=== PATIENT | female | born 1955 | race Caucasian/White ===

== ENCOUNTER 2019-01-25 06:36 | Inpatient (IN) | payer OTHER, SELFPAY ==
[2019-01-25 07:00] LABS: Actual Bicarbonate (HCO3a) 37.3 mEq/L (22-28); Analyzer IN Cardio ER; Base Excess (BEa) 6.5 mEq/L (-2.0 to +3.0); Calcium, Ionized 1.16 mmol/L (1.12-1.30); Carboxyhemoglobin (COHb) 7.9 gm% (0.0-3.0); Hemoglobin (Hb) 15.4 g/dL (12.0-16.0); O2 Tension (PaO2) 73.5 mmHg (> 80.0); Potassium - ABG Lab 3.89 mmol/L (3.70-5.30); pH, Arterial 7.26 (7.35-7.45)
--- NOTE | 2019-01-25 07:05 | RAD ---
RADIOGRAPH CHEST 1 VIEW: DATE: 01/25/2019 TIME: 6:30 AM HISTORY: 63-year-old female with dyspnea COMPARISON: 01/15/2012 FINDINGS: Cardiac size is larger on the current study compared to the previous. New finding of mild interstitia l densities diffusely bilaterally, probably representing mild pulmonary interstitial edema. No focal airspace opacity. Lateral costophrenic angles are sharp. Hyperlucency of bilateral upper lobes are again noted, consistent with COPD. No pneumothorax. IMPRESSION: 1. Evidence for minimal or mild congestive heart failure: Mild cardiomegaly and mild probable pulmona ry interstitial edema. 2. Emphysema.
[2019-01-25 07:16] LABS: CO2 Tension 85.2 mmHg (35.0-45.0); Puncture Site RRA
[2019-01-25 07:18] LABS: #Lymphocytes 0.9 thou/uL (1.20-3.40); #Monocytes 0.7 thou/uL (0.11-0.59); #Neutrophils 4.6 thou/uL (1.40-6.50); %Basophils 0.7 % (0.0-1.0); %Eosinophils 0.6 % (0.0-10.0); %Lymphocytes 14.8 % (21.0-51.0); %Neutrophils 72.8 % (42.0-75.0); Hemoglobin 14.8 g/dL (12.0-16.0); Mean Corpuscular HGB CONC 29.7 g/dL (32.0-36.0); Mean Corpuscular Hemoglobin 27.4 pg (27.0-31.0); Mean Corpuscular Volume 92.2 fL (78.0-98.0); Mean Platelet Volume 9.9 fL (7.4-10.4); Platelet Count 206 thou/uL (130-400); RBC Distribution Width 20.9 % (11.5-14.5); White Blood Cell (WBC) Count 6.3 thou/uL (4.8-10.8)
[2019-01-25 07:23] LABS: ALT (SGPT) 11 U/L (8-55); AST (SGOT) 14 U/L (5-34); Alkaline Phosphatase 82 U/L (40-110); Anion Gap 12 mmol/L (10-20); BUN (Urea Nitrogen) 12 mg/dL (9.8-20.1); Bilirubin, Total 0.6 mg/dL (0.2-1.2); Calc. Creatinine Clearance 0 mL/min (70-130); Calcium 8.8 mg/dL (7.8-10.44); Carbon Dioxide 34 mmol/L (23-31); Chloride 96 mmol/L (98-107); Estimated GFR-MDRD Greater than 90; Globulin 2.6 g/dL (2.4-3.5); Glucose 129 mg/dL (80-115); Potassium 4.1 mmol/L (3.5-5.1); Protein, Total 6.6 g/dL (6.0-8.3); Sodium 138 mmol/L (136-145)
[2019-01-25] MEDS ORDERED: Furosemide 40 MG/4 ML VIAL ONE (07:37)
[2019-01-25] MEDS ORDERED: methylPREDNISolone Sod Succ/PF 125 MG/2 ML VIAL ONE (07:37)
[2019-01-25] MEDS ORDERED: Magnesium 2 GM/50 ML BAG (IN WATER) ONE (07:37)
[2019-01-25 07:46] LABS: CKMB 4.4 ng/mL (0-6.6)
[2019-01-25 07:59] LABS: Band 1 % (5-11); Lymphocytes 10 % (21-51); MDiff Complete? YES; Monocytes 1 % (0-10); Neutrophil 76 % (42-75); Platelet Morphology Comment Appears Adequate; Reactive Lymphocytes 12 % (0-10)
[2019-01-25 10:25] LABS: Troponin I 0.236 ng/mL (< 0.028)
[2019-01-25] MEDS ORDERED: Aspirin Chewable 81 MG TAB ONE (12:43)
[2019-01-25 13:35] LABS: Troponin I 0.192 ng/mL (< 0.028)
[2019-01-25 14:11] VITALS: BMI 25.9
[2019-01-25] MEDS ORDERED: Guaifenesin DM 100-10/5 ML UDCUP PO PRN (14:47)
[2019-01-25] MEDS ORDERED: Albuterol Sulfate 2.5 mg/3 ml Neb NEB PRN (14:47)
[2019-01-25] MEDS ORDERED: Senokot S 8.6-50 MG TAB PO PRN (14:47)
[2019-01-25] MEDS ORDERED: Acetaminophen 325 MG TAB PO PRN (14:47)
[2019-01-25] MEDS ORDERED: Acetaminophen 650 MG Suppository PR PRN (14:47)
[2019-01-25] MEDS ORDERED: Ondansetron ODT 4 MG TAB PO PRN (14:47)
[2019-01-25] MEDS ORDERED: Ondansetron PF 4 MG/2 ML Vial IVP PRN (14:47)
[2019-01-25] MEDS ORDERED: Azithromycin 500 MG in Sodium Chloride 0.9% 250 ML 250 ML IVPB SCH (15:00)
--- NOTE | 2019-01-25 15:37 | HP ---
PRIMARY CARE PHYSICIAN: Dr. Villalba at [facility] in [place]. CHIEF COMPLAINT: Shortness of breath. HISTORY OF PRESENT ILLNESS: This is a 63-year-old white female with a known history of COPD, was continuing to smoke until about 3 to 4 weeks ago and who did report some recent marijuana smoking to the emergency room. She reports increasing shortness of breath for the last 2 months, is not on oxygen at home. She does use inhalers and a nebulizer at home. The patient eventually became so short of breath and she got dizzy, fell against a wall when she got to use her bathroom last night, so she came into the emergency room today. The patient was found to be in respiratory distress in the emergency room. She was given Solu-Medrol, magnesium, DuoNeb, and put on BiPAP with marked improvement in her symptoms. She had a chest x-ray done that looks like it may have a little bit of interstitial edema, so she was also given a dose of furosemide 80 mg and she was given a dose of aspirin. The patient is now in the IMCU. She is feeling much better. She is breathing easily on nasal cannula oxygen. REVIEW OF SYSTEMS: CONSTITUTIONAL: No fevers. She has had some chills. EYES: No double vision or blurred vision. ENT: No congestion, drainage, or sore throat. CARDIOVASCULAR: No chest pain. No palpitations or racing heart. PULMONARY: She has had coughing, not productive of sputum; chest tightness; and trouble breathing. No audible wheezing. GASTROINTESTINAL: No abdominal pain. No nausea or vomiting. No diarrhea or constipation. GENITOURINARY: No dysuria or hematuria. MUSCULOSKELETAL: No muscle aches or joint pains. SKIN: No rashes or other lesions noted. NEUROLOGIC: No numbness, tingling, or focal weakness. PAST MEDICAL HISTORY: 1. Hypertension. 2. COPD. PAST SURGICAL HISTORY: None. PAST PSYCHIATRIC HISTORY: None. SOCIAL HISTORY: The patient is a previous smoker, quit 3 to 4 weeks ago. She denied drug use to me, but reported marijuana use as recently as yesterday to the emergency room. No regular alcohol use. FAMILY HISTORY: No significant family history of medical problems. ALLERGIES: PENICILLIN. CURRENT MEDICATIONS: 1. Albuterol sulfate inhaler. 2. Unknown nebulizer. PHYSICAL EXAMINATION: VITAL SIGNS: Blood pressure 120/71, pulse 87, respirations 23, O2 saturation initially 49% on room air, came up to 81% on 2 L and now is running in the low 90s on 4 L nasal cannula, temperature 98.0. GENERAL: This is a well-developed, well-nourished white female, with minimal respiratory distress. HEENT: Pupils are equal, round, and reactive to light. Oropharynx clear without lesions, erythema, or exudate. She does have moist mucous membranes. NECK: Supple. No lymphadenopathy. No thyroid nodules or enlargement. No JVD. HEART: Regular rate and rhythm. No murmurs, rubs, or gallops. LUNGS: The patient has some very mild bibasilar crackles. No wheezes or other significant breath sounds. She has decent air movement bilaterally. ABDOMEN: Soft, nontender to palpation. Normoactive bowel sounds. No hepatosplenomegaly or other masses. EXTREMITIES: No clubbing, cyanosis, or edema. SKIN: No rashes or lesions noted. NEUROLOGIC: Intact strength and sensation in all extremities. No facial droop. PSYCHIATRIC: Alert and oriented x3. Normal mood and affect. LABORATORY DATA: CBC grossly within normal limits. D-dimer was done and is high at 0.52. ABGs in the emergency room showed a pH of 7.26, pCO2 of 85, and pO2 of 73. This was prior to putting on the BiPAP. Complete metabolic panel is notable for chloride of 96, bicarb of 34, and glucose of 129. The rest was normal. Troponin is indeterminate at 0.270, repeat was 0.236 and then 0.192. Brain natriuretic peptide was mildly elevated at 110. Lactic acid was negative at 1. IMAGING: I did review the chest x-ray done in the emergency room along with the radiologist's report. It does show mild cardiomegaly and some minimal interstitial changes, which might be mild congestive failure, but no obvious infiltrate. ASSESSMENT: 1. Chronic obstructive pulmonary disease exacerbation. We will continue nebs and steroids and we will start on azithromycin. 2. Acute hypoxic and hypercapnic respiratory failure, markedly improved after BiPAP, now breathing comfortably on nasal cannula oxygen. We will monitor closely in the IMCU and give BiPAP as needed and possibly move her out tomorrow if she is continuing to be stable. 3. Possible congestive heart failure with elevated BNP and indeterminate troponins along with the chest x-ray findings. We will continue Lasix 40 mg IV daily, and we will get an echocardiogram and consult Cardiology if the echocardiogram is abnormal. 4. Hypertension. We will monitor closely and give medication as necessary. 5. Deep venous thrombosis prophylaxis, put the patient on Lovenox subcu. 6. Gastrointestinal prophylaxis, put the patient on Pepcid twice a day. 7. Code status. I did discuss this with the patient. She stated that she does not ever want to have chest compressions or shocks should she code, but she does not mind being intubated temporarily due to her COPD. Should she be incapacitated, her will be her medical decision maker. His name is Helio Jimenes. Job ID: [id number]
--- NOTE | 2019-01-25 16:17 | CT ---
CT BRAIN WITH AND WITHOUT IV CONTRAST: HISTORY: Dizziness and fall FINDINGS: No evidence of infarct, hemorrhage, mass, midline shift or abnormal extra axial fluid collections is seen. The ventricular size is normal and the basilar cisterns are patent. No abnormal postcontrast enhancement is seen. The bony calvarium is intact. The visualized paranasal sinuses are well-aerated. IMPRESSION: No CT evidence of acute intracranial process or mass.
[2019-01-25] MEDS: methylPREDNISolone Sod Succ 40 MG VIAL IVP SCH ×2 (18:26→23:36)
[2019-01-25] MEDS: Mometasone/Formoterol 120 PUFF INHALER INH SCH (18:26)
[2019-01-25] MEDS: Famotidine 20 MG TAB PO SCH (20:34)
[2019-01-26 05:18] LABS: BUN (Urea Nitrogen) 14 mg/dL (9.8-20.1); Calc. Creatinine Clearance 116 mL/min (70-130); Calcium 8.5 mg/dL (7.8-10.44); Estimated GFR-MDRD Greater than 90; Glucose 145 mg/dL (80-115)
[2019-01-26 05:27] LABS: Anion Gap 14 mmol/L (10-20); Carbon Dioxide 35 mmol/L (23-31); Chloride 94 mmol/L (98-107); Potassium 4.2 mmol/L (3.5-5.1); Sodium 139 mmol/L (136-145)
[2019-01-26 05:53] LABS: #Lymphocytes 0.3 thou/uL (1.20-3.40); #Monocytes 0.1 thou/uL (0.11-0.59); %Basophils 0.4 % (0.0-1.0); %Eosinophils 0.1 % (0.0-10.0); %Lymphocytes 9.3 % (21.0-51.0); %Monocytes 3.2 % (0.0-10.0); %Neutrophils 87.1 % (42.0-75.0); Anisocytosis MODERATE=16-30 cells (100X) (0-5/hpf); Hemoglobin 14.2 g/dL (12.0-16.0); MDiff Complete? YES; Mean Corpuscular HGB CONC 29.1 g/dL (32.0-36.0); Mean Corpuscular Hemoglobin 26.4 pg (27.0-31.0); Mean Corpuscular Volume 90.9 fL (78.0-98.0); Mean Platelet Volume 10.6 fL (7.4-10.4); Platelet Count 203 thou/uL (130-400); RBC Distribution Width 21.2 % (11.5-14.5); Red Blood Cell (RBC) Count 5.38 mill/uL (4.20-5.40); White Blood Cell (WBC) Count 3.4 thou/uL (4.8-10.8)
[2019-01-26] MEDS: methylPREDNISolone Sod Succ 40 MG VIAL IVP SCH (05:55)
[2019-01-26] MEDS: Mometasone/Formoterol 120 PUFF INHALER INH SCH ×2 (07:41→19:15)
[2019-01-26] MEDS: Famotidine 20 MG TAB PO SCH ×2 (08:57→20:15)
[2019-01-26] MEDS: Enoxaparin Sodium 40 MG/0.4 ML SYRINGE SC SCH (08:58)
--- NOTE | 2019-01-26 08:59 | CON ---
DATE OF CONSULTATION: HISTORY OF PRESENT ILLNESS: A 63-year-old female, quit smoking about 3 years ago, was a pack a day smoker for many years, has diagnosis of COPD. She has several medications at home. Unfortunately, she states she has no insurance, unable to afford the medication. Now, she has been dizzy and falling down for the last 3 nights. She fell last night. Came to the hospital.resp distress she was initially placed on a BiPAP. at the bedside gives additional history that on a good day she can walk maybe half a block without getting markedly short of breath, chronic cough, chronic sputum production, chronic wheezing. PAST MEDICAL HISTORY: Pertinent otherwise for diabetes, previous substance abuse of cocaine years ago, quit 16 years ago. Tobacco, quit 3 years ago. HOME MEDICATIONS: Include albuterol inhaler, nebulizer apparently. ALLERGIES: PENICILLIN. PAST SURGICAL HISTORY: None recently. 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 REVIEW OF SYSTEMS: A 10-point negative. PHYSICAL EXAMINATION: VITAL SIGNS: Saturations 95% on 3 L, blood pressure 115/70, pulse 85, respiratory rate20. CHEST: Bilateral wheezing. CARDIAC: Normal S1, S2. No gallop. ABDOMEN: No masses. LABORATORY DATA: White count 6000, hemoglobin 14, hematocrit 49, platelet count is normal. PO2 was 73, pCO2 was 85, pH 7.26 on 4 L and a neb. Lytes were normal. Bicarb was 34, markedly elevated. Troponin was slightly elevated. BNP is normal. Chest x-ray showed no acute infiltrates. ASSESSMENT AND PLAN: 1. History of multiple falls, etiology unclear. 2. Chronic obstructive pulmonary disease exacerbation, respiratory failure. 3. Marked metabolic alkalosis, suggestive of chronic pCO2 retention. Blood gas shows significant elevation of the pCO2. 4. Previous hepatitis C, treated. 5. Previous substance abuse, quit years ago. I agree with present DuMelidab Dulera, steroids. CT head is being ordered. This is a consultation note, 70 minutes, 50% direct patient care. Job ID: [id number] MTDD
[2019-01-26] MEDS ORDERED: FLU VACC QS2019-20(6MOS UP)/PF 60 MCG/0.5 ML SYRINGE IM ONE (09:00)
[2019-01-26] MEDS ORDERED: Furosemide 40 MG/4 ML VIAL SLOW IVP SCH (09:00)
--- NOTE | 2019-01-26 10:09 | PRG ---
DATE OF SERVICE: 01/26/2019 SUBJECTIVE: This morning, the patient is better, she is less short of breath, less cough, less wheezing. She is less encephalopathic. CT of head was done, which is negative. OBJECTIVE: VITAL SIGNS: Saturations 95% on 3 L, temperature 98, pulse 90, respiratory rate 20, blood pressure 132/60. CHEST: Decreased breath sounds. Minimal wheezing. CARDIAC: Normal S1, S2. No gallops. ABDOMEN: No mass. LABORATORY DATA: White count 3000, H and H 14 and 48, and platelet count is normal. IMPRESSION: 1. Frequent fall, negative CT. 2. Previous substance abuse. 3. Chronic obstructive pulmonary disease exacerbation. PLAN: Switch her to oral prednisone, neb treatment, p.o. antibiotics, PT and supportive care, eventually placement. Job ID: [id number]
[2019-01-26] MEDS ORDERED: Aspirin 325 MG TAB PO SCH (12:15)
--- NOTE | 2019-01-26 12:21 | PDOC.HOSPP ---
- Subjective Encounter Date: 01/26/19 Encounter Time: 12:19 Subjective: 63 y/o female with COPD, HTN and DM admitted with acute onset of worsening SOB associated with wheezing, dizziness and a fall. found to have acute respiratory failure with hypoxia and hypercarbia due to COPd exacerbation and was treated with BIPAP, steroid, bronchodilators and antibiotics with improvement. Also found to have elevated troponin. feeling better. Off BIPAP. - Objective Vital Signs & Weight: Vital Signs (12 hours) Temp Pulse Pulse Pulse Resp BP BP 01/26/19 10:24 99.8 F H 01/26/19 09:12 112 H 108 H 119/77 131/74 01/26/19 09:10 108 H 119/77 131/74 01/26/19 08:00 01/26/19 07:39 98 20 01/26/19 07:00 99.0 F 01/26/19 03:47 98.1 F 01/26/19 00:21 97 26 H Pulse Ox Pulse Ox Pulse Ox 01/26/19 10:24 01/26/19 09:12 95 90 L 01/26/19 09:10 95 01/26/19 08:00 95 01/26/19 07:39 97 01/26/19 07:00 01/26/19 03:47 01/26/19 00:21 93 L Weight Weight 156 lb 3.2 oz Most Recent Monitor Data Heart Rate from ECG 95 NIBP 111/67 NIBP BP-Mean 81 Respiration from ECG 20 SpO2 92 I&O: 01/25/19 01/26/19 01/27/19 06:59 06:59 06:59 Intake Total 661 Output Total 590 Balance 71 Result Diagrams: 01/26/19 04:26 01/26/19 04:26 Hospitalist ROS - Medication Medications: Active Medications Generic Name Dose Route Start Last Admin Trade Name Freq PRN Reason Stop Dose Admin Albuterol/Ipratropium 3 ml 01/25/19 19:00 01/26/19 07:39 Duoneb NEB 3 ml [id number] CONCEPCION Administration Enoxaparin Sodium 40 mg 01/26/19 09:00 01/26/19 08:58 Lovenox SC 40 mg 0900 CONCEPCION Administration Famotidine 20 mg 01/25/19 21:00 01/26/19 08:57 Pepcid PO 20 mg BID CONCEPCION Administration Mometasone Furoate/Formoterol Fumar 2 puff 01/25/19 18:30 01/26/19 07:41 Dulera 200 Mcg/5 Mcg Inhaler INH 2 puff BID-RT CONCEPCION Administration - Exam General Appearance: awake alert Eye: anicteric sclera ENT: normocephalic atraumatic Neck: supple, symmetric, no JVD Heart: RRR Respiratory: no wheezes, no ronchi, normal chest expansion, no tachypnea Respiratory - other findings: fair air entry bilaterally with some transmitted sound Gastrointestinal: soft, non-tender, non-distended, normal bowel sounds Extremities: no cyanosis, no edema Neurological: cranial nerve grossly intact, no focal deficits Psychiatric: A&O x 3 Hosp A/P (1) Acute respiratory failure with hypoxia and hypercapnia Code(s): J96.01 - ACUTE RESPIRATORY FAILURE WITH HYPOXIA; J96.02 - ACUTE RESPIRATORY FAILURE WITH HYPERCAPNIA Status: Acute (2) COPD exacerbation Code(s): J44.1 - CHRONIC OBSTRUCTIVE PULMONARY DISEASE W (ACUTE) EXACERBATION Status: Acute (3) HTN (hypertension) Code(s): I10 - ESSENTIAL (PRIMARY) HYPERTENSION Status: Acute (4) Elevated troponin Code(s): R79.89 - OTHER SPECIFIED ABNORMAL FINDINGS OF BLOOD CHEMISTRY Status : Acute (5) Metabolic alkalosis Code(s): E87.3 - ALKALOSIS Status: Acute (6) Acute respiratory acidosis Code(s): E87.2 - ACIDOSIS Status: Acute - Plan Continue current treatments: steroid, bronchodilators, antibiotics and as needed oxygen Get Echo Start aspirin Consult cardiology. transfer to tele
[2019-01-26] MEDS: Doxycycline 100 MG CAP PO SCH (20:15)
--- NOTE | 2019-01-27 01:54 | CON ---
DATE OF CONSULTATION: HISTORY OF PRESENT ILLNESS: Gladys Jimenes is a 63-year-old white female with history of COPD and hypertension who has had increased shortness of breath over the last 2 months. She eventually became so short of breath that she was so weak and actually has had 2 falls. With these falls, she remembers falling and remembers hitting the floor. She came to the emergency room, found to be in respiratory distress. She was given Solu-Medrol, DuoNebs, placed on BiPAP. She also was given furosemide 80 mg. With oxygen, her breathing has significantly improved, although she has severe CO2 retention. She denies ever having any chest discomfort. PAST MEDICAL HISTORY: Hypertension, COPD. MEDICATIONS: 1. Amlodipine 10 daily. 2. Abilify 10 mg daily. 3. Aspirin 81 daily. 4. Advair 2 puffs b.i.d. 5. Ventolin inhaler. ALLERGIES: PENICILLIN. OPERATIONS: None. SOCIAL HISTORY: Smoked a pack a day, initially stated that she stopped smoking 3 years ago, but then admitted that she still smokes 1-2 cigarettes per day. She does not drink alcohol. REVIEW OF SYSTEMS: A 10-point review of systems is otherwise unremarkable. PHYSICAL EXAMINATION: VITAL SIGNS: Blood pressure 121/79, pulse of 99. HEENT: PERRL. NECK: Supple. CHEST: Reveals late expiratory wheezing. CARDIOVASCULAR: S1, S2 normal without any S3, S4 or murmurs. NECK: Carotid upstrokes normal without bruits. ABDOMEN: Normal bowel sounds without tenderness, organomegaly. EXTREMITIES: Revealed no clubbing, cyanosis, or edema. NEUROLOGICAL: Grossly intact. SKIN: Warm and dry. LABORATORY DATA: EKG revealed sinus tachycardia, otherwise unremarkable. Echocardiogram revealed ejection fraction of 50% to 55% with evidence for diastolic dysfunction, moderately enlarged right atrium and moderately enlarged right ventricle, severe tricuspid regurgitation, mitral annular calcification, mild mitral regurgitation, pulmonary artery pressure is 58 mmHg. Hemoglobin 14.2, hematocrit 48.9, white count 3400, platelets 203,000. D-dimer 0.52. pH 7.26, pCO2 85.2, pO2 on 40% was 73.5. Sodium 139, potassium 4.2, chloride 94, carbon dioxide 35, BUN 14, creatinine 0.57. Troponin I 0.270. BNP 110.4 kg. IMPRESSION: 1. Chronic obstructive pulmonary disease exacerbation. 2. Smoker-continues to smoke 1-2 cigarettes per day. 3. [id number] myocardial infarction, type 2. She does not have any history of chest discomfort. 4. Falls, which from her description do not sound like syncope. 5. Hypertension. PLAN: The patient currently is having her COPD treated aggressively. We will continue to follow over the next 1-2 days. Job ID: [id number]
[2019-01-27 04:36] LABS: #Lymphocytes 1.4 thou/uL (1.20-3.40); #Monocytes 0.8 thou/uL (0.11-0.59); #Neutrophils 5.7 thou/uL (1.40-6.50); %Basophils 0.4 % (0.0-1.0); %Eosinophils 0.1 % (0.0-10.0); %Lymphocytes 17.2 % (21.0-51.0); %Monocytes 10.4 % (0.0-10.0); %Neutrophils 71.8 % (42.0-75.0); Hemoglobin 14.2 g/dL (12.0-16.0); Mean Corpuscular HGB CONC 29.9 g/dL (32.0-36.0); Mean Corpuscular Hemoglobin 27.1 pg (27.0-31.0); Mean Corpuscular Volume 90.6 fL (78.0-98.0); Mean Platelet Volume 10.4 fL (7.4-10.4); Platelet Count 218 thou/uL (130-400); RBC Distribution Width 20.9 % (11.5-14.5); Red Blood Cell (RBC) Count 5.25 mill/uL (4.20-5.40); White Blood Cell (WBC) Count 7.9 thou/uL (4.8-10.8)
[2019-01-27 04:37] LABS: Hemoglobin A1c 6.2 % (4.0-6.0)
[2019-01-27 05:06] LABS: Anion Gap 13 mmol/L (10-20); BUN (Urea Nitrogen) 19 mg/dL (9.8-20.1); Calc. Creatinine Clearance 114 mL/min (70-130); Calcium 8.2 mg/dL (7.8-10.44); Carbon Dioxide 32 mmol/L (23-31); Chloride 94 mmol/L (98-107); Estimated GFR-MDRD Greater than 90; Glucose 86 mg/dL (80-115); Potassium 4.1 mmol/L (3.5-5.1); Sodium 135 mmol/L (136-145)
[2019-01-27] MEDS: Mometasone/Formoterol 120 PUFF INHALER INH SCH ×2 (07:58→19:17)
[2019-01-27] MEDS: Doxycycline 100 MG CAP PO SCH ×2 (08:47→20:33)
[2019-01-27] MEDS: predniSONE 20 MG TAB PO SCH (08:47)
[2019-01-27] MEDS: Famotidine 20 MG TAB PO SCH ×2 (08:48→20:33)
[2019-01-27] MEDS: Carvedilol 3.125 MG TAB PO SCH ×2 (08:48→16:42)
[2019-01-27] MEDS: Aspirin 325 mg Enteric Coated Tablet PO SCH (08:48)
[2019-01-27] MEDS: Enoxaparin Sodium 40 MG/0.4 ML SYRINGE SC SCH (08:49)
[2019-01-27] MEDS ORDERED: Furosemide 20 MG TAB PO SCH (09:45)
--- NOTE | 2019-01-27 09:46 | PDOC.HOSPP ---
- Subjective Encounter Date: 01/27/19 Encounter Time: 08:49 Subjective: 63 y/o female with COPD, HTN and DM admitted with acute onset of worsening SOB associated with wheezing, dizziness and a fall. Found to have acute respiratory failure with hypoxia and hypercarbia due to COPd exacerbation and was treated with BIPAP, steroid, bronchodilators and antibiotics with improvement. Also found to have elevated troponin and echo showed diastolic dysfunction. feeling better. Off BIPAP. wants to go home. still on oxygen however. - Objective Vital Signs & Weight: Vital Signs (12 hours) Temp Pulse Resp BP Pulse Ox 01/27/19 07:57 92 20 94 L 01/27/19 07:53 97.9 F 89 18 105/60 94 L 01/27/19 03:57 98.4 F 106 H 16 101/61 94 L 01/27/19 01:17 98 18 95 Weight Weight 156 lb 3.2 oz Most Recent Monitor Data Heart Rate from ECG 99 NIBP 121/79 NIBP BP-Mean 93 Respiration from ECG 23 SpO2 93 I&O: 01/26/19 01/27/19 01/28/19 06:59 06:59 06:59 Intake Total 661 240 Output Total 590 Balance 71 240 Result Diagrams: 01/27/19 03:31 01/27/19 03:31 Hospitalist ROS - Medication Medications: Active Medications Generic Name Dose Route Start Last Admin Trade Name Freq PRN Reason Stop Dose Admin Albuterol/Ipratropium 3 ml 01/25/19 19:00 01/27/19 07:57 Duoneb NEB 3 ml [id number] CONCEPCION Administration Aspirin 325 mg 01/27/19 09:00 01/27/19 08:48 Ecotrin PO 325 mg DAILY CONCEPCION Administration Carvedilol 3.125 mg 01/27/19 08:00 01/27/19 08:48 Coreg PO 3.125 mg BID-WM CONCEPCION Administration Doxycycline Hyclate 100 mg 01/26/19 21:00 01/27/19 08:47 Vibramycin PO 100 mg BID CONCEPCION Administration Enoxaparin Sodium 40 mg 01/26/19 09:00 01/27/19 08:49 Lovenox SC 40 mg 0900 CONCEPCION Administration Famotidine 20 mg 01/25/19 21:00 01/27/19 08:48 Pepcid PO 20 mg BID CONCEPCION Administration Mometasone Furoate/Formoterol Fumar 2 puff 01/25/19 18:30 01/27/19 07:58 Dulera 200 Mcg/5 Mcg Inhaler INH 2 puff BID-RT CONCEPCION Administration Ondansetron HCl 4 mg 01/25/19 14:47 01/27/19 08:48 Zofran Odt PO 4 mg Q6H PRN Administration Nausea/Vomiting Prednisone 40 mg 01/27/19 08:00 01/27/19 08:47 Prednisone PO 40 mg QAM-WM CONCEPCION Administration - Exam General Appearance: awake alert Eye: anicteric sclera ENT: normocephalic atraumatic, moist mucosa Neck: supple, symmetric, no JVD Heart: RRR Respiratory: no wheezes, no ronchi, normal chest expansion Respiratory - other findings: fair air entry with few bibasal crackles Gastrointestinal: soft, non-tender, non-distended, normal bowel sounds Extremities: no cyanosis, no edema Neurological: cranial nerve grossly intact, no focal deficits Musculoskeletal: generalized weakness Psychiatric: A&O x 3, flat affect Hosp A/P (1) Acute respiratory failure with hypoxia and hypercapnia Code(s): J96.01 - ACUTE RESPIRATORY FAILURE WITH HYPOXIA; J96.02 - ACUTE RESPIRATORY FAILURE WITH HYPERCAPNIA Status: Acute (2) COPD exacerbation Code(s): J44.1 - CHRONIC OBSTRUCTIVE PULMONARY DISEASE W (ACUTE) EXACERBATION Status: Acute (3) HTN (hypertension) Code(s): I10 - ESSENTIAL (PRIMARY) HYPERTENSION Status: Acute (4) Elevated troponin Code(s): R79.89 - OTHER SPECIFIED ABNORMAL FINDINGS OF BLOOD CHEMISTRY Status : Acute (5) Metabolic alkalosis Code(s): E87.3 - ALKALOSIS Status: Acute (6) Acute respiratory acidosis Code(s): E87.2 - ACIDOSIS Status: Acute (7) Type 2 AMI (acute myocardial infarction) Code(s): I21.A1 - MYOCARDIAL INFARCTION TYPE 2 Status: Acute (8) Acute diastolic (congestive) heart failure Code(s): I50.31 - ACUTE DIASTOLIC (CONGESTIVE) HEART FAILURE Status: Acute (9) Physical deconditioning Code(s): R53.81 - OTHER MALAISE Status: Acute (10) Recurrent falls Code(s): R29.6 - REPEATED FALLS Status: Acute - Plan old records reviewed/req, plan discussed w/ family, hernandez catheter, PT/OT, director of social media marketing, speech therapy, respiratory therapy, incentive spirometry, out of bed/ambulate, DVT proph w/heparin, DVT proph w/lovenox, DVT proph w/SCDs, GI proph, dc hernandez, dc tele, dc IVF Continue current treatments: steroid, bronchodilators, antibiotics and as needed oxygen Start coreg and low dose lasix. Continue aspirin Increase activity. PT eval and treat. Patient and spouse want to be discharged. Consult case mgt for home oxygen.
--- NOTE | 2019-01-27 19:28 | PRG ---
DATE OF SERVICE: SUBJECTIVE: Gladys Jimenes has no complaints. OBJECTIVE: VITAL SIGNS: She is afebrile. Heart rate is in the 80s, respiratory rate is 18, oximetry is 92% on 1 L, and blood pressure 104/62. LUNGS: Clear. HEART: Regular rhythm. ABDOMEN: Soft. LABORATORY DATA: White count 7.9, hemoglobin 14.2, and platelets 218. Sodium 135, potassium 4.1, chloride 94, bicarb 32, BUN 19, and creatinine 0.58. IMPRESSION: Chronic obstructive pulmonary disease exacerbation, clinically stable. Echocardiogram was done showing diastolic dysfunction, but a normal ejection fraction. Overall, she appears to be stable. She does not have oxygen at home. She may not need it. I would suggest checking a room-air sat sitting up in a chair tomorrow. If it is 90 or higher, she can go home without oxygen and follow up closely with our Pulmonary group. Job ID: [id number]
[2019-01-28 04:56] LABS: Albumin 3.7 g/dL (3.4-4.8); Anion Gap 13 mmol/L (10-20); BUN (Urea Nitrogen) 15 mg/dL (9.8-20.1); BUN/Creatinine Ratio 25.42; Calc. Creatinine Clearance 112 mL/min (70-130); Carbon Dioxide 34 mmol/L (23-31); Chloride 92 mmol/L (98-107); Estimated GFR-MDRD Greater than 90; Glucose 101 mg/dL (80-115); Phosphorus 3.4 mg/dL (2.3-4.7); Potassium 4.3 mmol/L (3.5-5.1); Sodium 135 mmol/L (136-145)
[2019-01-28 07:09] VITALS: BP 109/65; TEMP 98.1
[2019-01-28] MEDS: Mometasone/Formoterol 120 PUFF INHALER INH SCH (07:35)
[2019-01-28] MEDS: Aspirin 325 mg Enteric Coated Tablet PO SCH (08:41)
[2019-01-28] MEDS: predniSONE 20 MG TAB PO SCH (08:41)
[2019-01-28] MEDS: Doxycycline 100 MG CAP PO SCH (08:41)
[2019-01-28] MEDS: Famotidine 20 MG TAB PO SCH (08:41)
[2019-01-28] MEDS: Carvedilol 3.125 MG TAB PO SCH (08:42)
[2019-01-28] MEDS: Enoxaparin Sodium 40 MG/0.4 ML SYRINGE SC SCH (08:42)
[2019-01-28] MEDS ORDERED: Furosemide 20 MG TAB PO SCH (09:00)
--- NOTE | 2019-01-28 20:06 | DIS ---
DATE OF ADMISSION: 01/25/2019 DATE OF DISCHARGE: 01/28/2019 DISCHARGE DIAGNOSES: 1. Acute respiratory failure with hypoxia and hypercapnia. 2. Chronic obstructive pulmonary disease exacerbation. 3. Acute diastolic heart failure. 4. Acute respiratory acidosis. 5. Type 2 acute myocardial infarction. 6. Acute respiratory acidosis. 7. Metabolic alkalosis. 8. Elevated troponin. 9. Hypertension. 10. Physical deconditioning. 11. Recurrent falls. CONSULT: Pulmonology, Cardiology. HOSPITAL COURSE: A 63-year-old female with known history of COPD, hypertension, diabetes, admitted with acute onset of worsening shortness of breath associated with wheezing, dizziness, and falls. The patient was found to have acute respiratory failure with hypoxia and hypercarbia due to COPD exacerbation as well as acute CHF. The patient was started on BiPAP, steroids, bronchodilators, and antibiotics with improvement. The patient also was found to have elevated troponin and subsequent echocardiogram showed diastolic heart failure. Cardiology consult was obtained and medical management was recommended. The patient improved with BiPAP and was subsequently weaned off BiPAP. She continued to improve and oxygen supplementation was soon weaned off. The patient improved overall and was subsequently discharged home. PHYSICAL EXAMINATION: VITAL SIGNS: Temperature 98.1, pulse 81, respiratory rate 18, SpO2 of 94% on 1 L nasal cannula and later on 92% on room air. Blood pressure is 109/65. GENERAL: Middle-age female, in no obvious distress. Afebrile, anicteric, acyanotic. HEENT: Normocephalic, atraumatic. Oral mucosa is moist. NECK: Supple. Symmetrical with no JVD. CARDIOVASCULAR: Regular rhythm and rate with normal heart sounds 1 and 2. RESPIRATORY: Fair air entry bilaterally with few bibasilar crackles. No rhonchi was appreciated. GI: Full, soft, nontender, nondistended with normal bowel sounds. EXTREMITIES: Grossly normal looking, atraumatic, with no edema or erythema. NUCLEAR TECHNOLOGIST: Conscious and alert, oriented x3 with appropriate mental status. Cranial nerves 2 through 12 are grossly intact. DISCHARGE CONDITION: Improved. DISCHARGE DISPOSITION: Home. FOLLOWUP INSTRUCTION: The patient to follow with PCP in 7 days, with pulmonology in 2 to 3 weeks. DISCHARGE MEDICATION: 1. Abilify 10 mg p.o. daily. 2. Aspirin 81 mg p.o. daily. 3. Clozapine 25 mg p.o. daily. 4. Ventolin HFA 1 puff inhalation. 5. Coreg 3.125 mg p.o. b.i.d. 6. Doxycycline 100 mg p.o. b.i.d. for 7 days. 7. Lasix 20 mg p.o. daily. 8. Mucinex 600 mg p.o. b.i.d. 9. DuoNeb 3 mL inhalation every 6 hours p.r.n. for shortness of breath. This discharge took more than 36 minutes. Job ID: [id number]
--- NOTE | 2019-01-29 09:04 | PRG ---
DATE OF SERVICE: 01/28/2019 SUBJECTIVE: She is ready to go home. OBJECTIVE: LUNGS: Clear. VITAL SIGNS: Stable. HEART: Regular rhythm. ABDOMEN: Soft. PLAN: I have recommended that she follow up with any flat machine cutter within 1-2 months. She should have a 2-week taper steroids. She should finish out her antibiotics. She will continue nebulized treatments at home. Her room air sat will determine whether or not she needs oxygen. Job ID: [id number]
== END 2019-01-28 11:31 | disposition home or self-care (01) | DRG 280 ==
LOC: ERS 06:36 → ERHOLD 08:49 → IMCU/EMU 13:23 → 2NO 01-26 17:49
PROVIDERS: ADMIT Emergency Medicine; ATTEND Emergency Medicine
PROC: 5A09357 Assistance with Respiratory Ventilation, Less than 24 Consecutive Hours, Continuous Positive Airway Pressure (ICD-10-PCS; principal; 2019-01-25)
DX: I11.0 Hypertensive heart disease with heart failure (principal); J96.01 Acute respiratory failure with hypoxia; I21.A1 Myocardial infarction type 2; J96.02 Acute respiratory failure with hypercapnia; J44.1 Chronic obstructive pulmonary disease with (acute) exacerbation; E87.4 Mixed disorder of acid-base balance; I50.33 Acute on chronic diastolic (congestive) heart failure; R29.6 Repeated falls; E11.9 Type 2 diabetes mellitus without complications; Z87.891 Personal history of nicotine dependence; Z28.21 Immunization not carried out because of patient refusal; Z88.0 Allergy status to penicillin; Z86.19 Personal history of other infectious and parasitic diseases
CPT/HCPCS: 36415; 70470; 71045; 80048; 80053; 80069; 82553; 82805; 83036; 83605; 83880; 84484; 85025; 85379; 93005; 93306; 94640; J0456; J1650; J1940; J2920; J2930; J3475; J7050; J7512; J7620; Q0162

== ENCOUNTER 2019-02-19 03:33 | Inpatient (IN) | payer SELFPAY ==
[2019-02-19] MEDS ORDERED: Albuterol Sulfate 2.5 mg/3 ml Neb ONE ×2 (03:39→03:48)
[2019-02-19] MEDS ORDERED: Albuterol Sulfate 2.5 mg/0.5 ml Neb ONE (03:39)
[2019-02-19] MEDS ORDERED: Magnesium 2 GM/50 ML BAG (IN WATER) ONE ×2 (03:41→04:00)
[2019-02-19] MEDS ORDERED: methylPREDNISolone Sod Succ/PF 125 MG/2 ML VIAL ONE (03:41)
[2019-02-19 03:59] LABS: Hemoglobin 16.4 g/dL (12.0-16.0); Mean Corpuscular Volume 92.3 fL (78.0-98.0); White Blood Cell (WBC) Count 8.5 thou/uL (4.8-10.8)
[2019-02-19 04:10] LABS: ALT (SGPT) Less than 7 U/L (8-55); AST (SGOT) 10 U/L (5-34); Albumin 4.6 g/dL (3.4-4.8); Alkaline Phosphatase 71 U/L (40-110); Anion Gap 13 mmol/L (10-20); BUN (Urea Nitrogen) 20 mg/dL (9.8-20.1); Bilirubin, Total 0.8 mg/dL (0.2-1.2); Calc. Creatinine Clearance 0 mL/min (70-130); Carbon Dioxide 36 mmol/L (23-31); Chloride 95 mmol/L (98-107); Estimated GFR-MDRD 84; Globulin 2.3 g/dL (2.4-3.5); Glucose 154 mg/dL (80-115); Potassium 5.1 mmol/L (3.5-5.1); Protein, Total 6.9 g/dL (6.0-8.3); Sodium 139 mmol/L (136-145)
[2019-02-19 04:14] LABS: Anisocytosis SLIGHT = 6-15 cells (100X) (0-5/hpf); Band 2 % (5-11); Lymphocytes 13 % (21-51); MDiff Complete? YES; Mean Corpuscular HGB CONC 27.8 g/dL (32.0-36.0); Mean Corpuscular Hemoglobin 25.7 pg (27.0-31.0); Mean Platelet Volume 10.8 fL (7.4-10.4); Monocytes 4 % (0-10); Neutrophil 81 % (42-75); Platelet Count 232 thou/uL (130-400); Platelet Morphology Comment Appears Adequate; RBC Distribution Width 23.5 % (11.5-14.5)
[2019-02-19 05:02] LABS: Actual Bicarbonate (HCO3a) 34.3 mEq/L (22-28); Analyzer IN Cardio ER; Base Excess (BEa) 3.1 mEq/L (-2.0 to +3.0); Calcium, Ionized 1.19 mmol/L (1.12-1.30); Carboxyhemoglobin (COHb) 3.6 gm% (0.0-3.0); Hemoglobin (Hb) 16.1 g/dL (12.0-16.0); O2 Tension (PaO2) 76.5 mmHg (> 80.0); Potassium - ABG Lab 3.97 mmol/L (3.70-5.30)
[2019-02-19 05:03] LABS: pH, Arterial 7.22 (7.35-7.45)
[2019-02-19 05:04] LABS: Puncture Site RBA
[2019-02-19 06:43] LABS: Actual Bicarbonate (HCO3a) 38.6 mEq/L (22-28); Analyzer IN Cardio ER; Base Excess (BEa) 7.2 mEq/L (-2.0 to +3.0); Calcium, Ionized 1.16 mmol/L (1.12-1.30); Hemoglobin (Hb) 16.2 g/dL (12.0-16.0); O2 Tension (PaO2) 88.9 mmHg (> 80.0); Potassium - ABG Lab 4.13 mmol/L (3.70-5.30)
[2019-02-19 06:45] LABS: CO2 Tension 89.7 mmHg (35.0-45.0); Puncture Site L.B.; pH, Arterial 7.25 (7.35-7.45)
[2019-02-19 06:46] LABS: ALV-art Gradient 226.775 (0-20)
[2019-02-19 07:07] VITALS: BMI 28.5
--- NOTE | 2019-02-19 08:39 | RAD ---
PORTABLE AP CHEST XRAY: HISTORY: Dyspnea and shortness of breath. COMPARISON: 01/25/2019. FINDINGS: The cardiac silhouette is magnified by projection but does appear mildly enlarged. There is mild inc rease in the perihilar interstitial densities greater at the right lug base not significantly changed when compared to the prior exam. No consolidation or pleural fluid is seen. Vascular calcification seen in the thoracic aorta. IMPRESSION: Stable chest. POS: OFF
[2019-02-19] MEDS ORDERED: Guaifenesin DM 100-10/5 ML UDCUP PO PRN (08:42)
[2019-02-19] MEDS ORDERED: Acetaminophen 325 MG TAB PO PRN (08:42)
[2019-02-19] MEDS ORDERED: Ondansetron PF 4 MG/2 ML Vial IVP PRN (08:42)
[2019-02-19] MEDS ORDERED: Senokot S 8.6-50 MG TAB PO PRN (08:42)
[2019-02-19] MEDS ORDERED: Acetaminophen 650 MG Suppository PR PRN (08:42)
[2019-02-19] MEDS ORDERED: Ondansetron ODT 4 MG TAB PO PRN (08:42)
[2019-02-19] MEDS ORDERED: Furosemide 40 MG/4 ML VIAL SLOW IVP SCH (09:00)
[2019-02-19] MEDS: Enoxaparin Sodium 40 MG/0.4 ML SYRINGE SC SCH (11:07)
[2019-02-19] MEDS: clonazePAM 0.5 MG TAB PO SCH (11:07)
[2019-02-19] MEDS: Aripiprazole 10 MG TAB PO SCH (11:07)
[2019-02-19] MEDS: Aspirin 81 mg Enteric Coated Tablet PO SCH (11:07)
[2019-02-19] MEDS: Carvedilol 3.125 MG TAB PO SCH ×2 (11:07→20:48)
[2019-02-19] MEDS: Famotidine 20 MG TAB PO SCH ×2 (11:08→20:48)
[2019-02-19] MEDS: guaiFENesin ER 600 MG TAB PO SCH ×2 (11:08→20:48)
[2019-02-19] MEDS: methylPREDNISolone Sod Succ 40 MG VIAL IVP SCH ×3 (11:08→23:49)
--- NOTE | 2019-02-19 13:33 | CON ---
DATE OF CONSULTATION: HISTORY: Gladys Jimenes is a 63-year-old white female, who I evaluated approximately 3 weeks ago on January 26, 2019 when she was admitted with COPD exacerbation. She was given Solu-Medrol, DuoNeb, was placed on BiPAP, given furosemide 80 mg and her breathing improved. She had severe CO2 retention. She states she has not smoked since that hospitalization. She now presents complaining of increased shortness of breath and nonproductive cough. She denies any chest discomfort. She does use oxygen at home. In the emergency room, she was given Levaquin, albuterol neb and then DuoNeb and methylprednisolone. She states that her breathing has improved. PAST MEDICAL HISTORY: Hypertension, COPD. MEDICATIONS: When she was discharged, 1. Abilify 10 mg daily. 2. Aspirin 81 daily. 3. Clozapine 25 mg daily. 4. Ventolin 1 puff p.r.n. 5. Carvedilol 3.125 b.i.d. 6. Doxycycline 100 mg b.i.d. for 7 days. 7. Lasix 20 daily. 8. Mucinex 600 b.i.d. 9. DuoNeb q.6 hours p.r.n. 10. She also has been using home oxygen. Also in looking at her current med list, she was on furosemide 20 mg q.a.m. ALLERGIES: PENICILLIN. PAST SURGICAL HISTORY: None. SOCIAL HISTORY: She smoked a pack per day, but states she stopped smoking after her last hospitalization. REVIEW OF SYSTEMS: Ten-point review of systems is otherwise unremarkable. PHYSICAL EXAMINATION: VITAL SIGNS: Blood pressure 110/71, pulse 88. HEENT: PERRL. NECK: Supple. CHEST: Reveals distant breath sounds with late expiratory wheezing. CARDIOVASCULAR: S1 and S2 normal without any S3, S4, or murmurs. ABDOMEN: Normal bowel sounds without tenderness or organomegaly. EXTREMITIES: Revealed no clubbing, cyanosis, or edema. NEUROLOGIC: Grossly intact. SKIN: Warm and dry. LABORATORY DATA: EKG revealed sinus tachycardia with right atrial enlargement. Echocardiogram last admission revealed ejection fraction of 50% to 55% with moderately enlarged right ventricle, evidence for diastolic dysfunction, moderately enlarged right atrium, mitral annular calcification, mild mitral regurgitation, severe tricuspid regurgitation. Hemoglobin 16.4, hematocrit 59.1, white count 8500, and platelets 232,000. Sodium 139, potassium 5.1, chloride 95, carbon dioxide 36, BUN 20, creatinine 0.71, glucose 154. BNP 501.1. Troponin I is normal. Blood gas revealed a pH of 7.25, pCO2 of 89.7, and pO2 of 88.9. IMPRESSION: 1. Chronic obstructive pulmonary disease exacerbation. 2. Acute respiratory failure with severe hypercapnia. 3. Former smoker. 4. Hypertension. 5. Probably some degree of diastolic dysfunction. PLAN: Ms. Jimenes's most significant problem is COPD exacerbation with severe carbon dioxide retention. She probably has some degree of diastolic dysfunction. However, I feel this is probably minor and we will continue the low-dose furosemide. Job ID: [id number] MTDD
--- NOTE | 2019-02-19 16:42 | HP ---
PRIMARY CARE PHYSICIAN: Jenny. CHIEF COMPLAINT: Shortness of breath. HISTORY OF PRESENT ILLNESS: This is a 63-year-old white female, recently admitted here last month for COPD exacerbation. The patient was doing well on room air without significant symptoms until about 2 days prior to admission. She started to get a little short of breath at that time per her , then yesterday she started getting severely short of breath. Then early this morning, she woke him up, so they need to go to the hospital. In the ER, the patient was found to be in severe respiratory distress, breathing at 60 times per minute with O2 saturation on room air in the 40s. She was put on oxygen, which helped the O2 sats to be up to the 80s; however, she was still severely in distress, so they put her on BiPAP. She was also given antibiotics and nebs and steroids in the emergency room, and now in the IMCU, doing a lot better. The patient also received magnesium sulfate in the emergency room as well. The patient denies any coughing or any infectious symptoms, and has had no other symptoms recently. No significant chest pain. PAST MEDICAL HISTORY: 1. COPD, not on home oxygen. 2. Hypertension. PAST SURGICAL HISTORY: None. PAST PSYCHIATRIC HISTORY: None. SOCIAL HISTORY: The patient is a previous smoker, quit a couple of months ago. She does have a history of marijuana use. No regular alcohol use. She is and her is present with her in the room. FAMILY HISTORY: No significant family history of medical problems. ALLERGIES: PENICILLIN. CURRENT MEDICATIONS: 1. Clonazepam 1 mg each morning. 2. Furosemide 20 mg daily. 3. DuoNeb as needed. 4. Ventolin inhaler as needed. 5. Abilify 10 mg daily. 6. Aspirin 81 mg daily. 7. Carvedilol 3.125 mg twice a day. 8. Advair HFA 115/21 two inhalations twice a day. 9. Mucinex 600 mg twice a day. REVIEW OF SYSTEMS: CONSTITUTIONAL: No fevers. No chills. EYES: No double vision or blurred vision. ENT: No congestion, drainage, or sore throat. CARDIOVASCULAR: No chest pain. No palpitations or racing heart. PULMONARY: See HPI. GASTROINTESTINAL: No abdominal pain. No nausea or vomiting. No diarrhea or constipation. GENITOURINARY: No dysuria or hematuria. MUSCULOSKELETAL: No muscle aches or joint pain. SKIN: No rashes or lesions noted. NEUROLOGIC: No numbness, tingling, or focal weakness. PHYSICAL EXAMINATION: VITAL SIGNS: Blood pressure 107/60, pulse 88, respirations 23, on O2 saturation 91% on 40% FiO2 with BiPAP. GENERAL: This is a well-developed, well-nourished white female, who does not appear currently in any respiratory distress on the BiPAP mask. She is awake and alert and interactive and can talk. HEENT: Pupils are equal, round, and reactive to light. Oropharynx, a bit dry on the BiPAP, but otherwise clear. NECK: Supple. No lymphadenopathy. No thyroid nodules or enlargement. No JVD. HEART: Regular rate and rhythm. No murmurs, rubs, or gallops. LUNGS: The patient has some mild bibasilar crackles, otherwise mildly decreased air movement throughout, but decent air movement on the BiPAP mask. No increased work of breathing currently. ABDOMEN: Soft, nontender to palpation. Normoactive bowel sounds. No hepatosplenomegaly or other masses. EXTREMITIES: No clubbing, cyanosis, or edema. SKIN: No rashes or other lesions. NEUROLOGIC: Moving all extremities equally. No facial droop. PSYCHIATRIC: Alert and oriented x3. Normal mood and affect. LABORATORY DATA: CBC with a white blood cell count of 8.5, hemoglobin 16.4, hematocrit 59.1, and platelet count 232. Blood gases initially showed a pH of 7.22, up to pH of 7.25. Recheck this morning on BiPAP, pCO2 was 89, PO2 was 88. Complete metabolic panel is notable for a chloride of 95, bicarb of 36, glucose of 154. The rest was normal. Troponin was negative x1. Magnesium was normal, and brain natriuretic peptide was elevated at 500, which is up from 100 about 1 month ago. DIAGNOSTIC DATA: I did review the chest x-ray done in the emergency room along with the radiologist's report, does show some mild increase in perihilar interstitial densities, greater in the right lung base, not significantly changed compared to prior exam. No other significant findings. ASSESSMENT: 1. Acute exacerbation of chronic obstructive pulmonary disease. 2. [id number] hypoxic and hypercarbic respiratory failure, requiring BiPAP. The patient has been started on steroids and DuoNeb and also given Levaquin in the emergency room. She did just recently complete a course of doxycycline. I do not see any infectious etiology right now, so I am going to hold off on continuing the antibiotics until seen by Pulmonology. We will continue BiPAP as needed along with IV Solu-Medrol. This can eventually be transitioned over to prednisone. Dr. Chacon has been consulted. 3. Diastolic dysfunction with significant elevation of the of brain natriuretic peptide compared to last admission and some crackles in lung bases. We will give the patient a single IV dose of Lasix, and then we will resume her home Lasix dose. I will consult Dr. Bergman to see if he has any other recommendations as far as adjustment from of her medications. 4. Hypertension. Resume patient's home blood pressure medications. 5. Deep venous thrombosis prophylaxis. The patient is on Lovenox and SCDs while in bed. 6. Gastrointestinal prophylaxis. The patient is on Pepcid twice a day. CODE STATUS: I did discuss this with the patient. She does not mind being intubated temporally for her COPD, but she does not want any other resuscitation efforts like chest compressions or shocks done. Should she be incapacitated, her is her medical decision maker, his name is Helio Hinds. Job ID: [id number]
[2019-02-19] MEDS: Mometasone/Formoterol 120 PUFF INHALER INH SCH (18:52)
--- NOTE | 2019-02-19 20:47 | CON ---
DATE OF CONSULTATION: SUBJECTIVE: Gladys Jimenes was seen by me last admission. She was to follow up with me in 2 to 3 weeks after discharge, but never did make an appointment. She was admitted again this admission with ongoing shortness of breath. She is abstinent from tobacco. She has improved. PAST MEDICAL HISTORY: Remarkable for hypertension and COPD. CURRENT MEDICATIONS: Prior to admission, she was on 9 different medications, these have been reviewed. ALLERGIES: SHE IS ALLERGIC TO PENICILLIN. SOCIAL HISTORY: She is pack-a-day smoker, but has not smoked since she went home. She denies daily drinker. REVIEW OF SYSTEMS: 10 points negative. PHYSICAL EXAMINATION: GENERAL: She is very pleasant, in no distress, talking in complete sentences. VITAL SIGNS: She is afebrile. Heart rate is in 80s, respiratory rates in the 20s, oximetry is 91% on 3 L, blood pressure 102/85. HEAD AND NECK: Unremarkable. LUNGS: Remarkable for end-expiratory wheezes. HEART: Regular rhythm. S1, S2 are normal. ABDOMEN: Soft and nontender. EXTREMITIES: Without clubbing, cyanosis, or edema. NEUROLOGIC: Nonfocal. LABORATORY DATA: White count 8.5, hemoglobin 16.4, platelets 232. Sodium 139, potassium 5.1, chloride 95, bicarb 36, BUN 20, creatinine 0.71. PH 7.25, CO2 of 89, PO2 of 88 early this morning. IMPRESSION: 1. Chronic obstructive pulmonary disease exacerbation. 2. Acute hypercarbic respiratory failure with hypoxemia. 3. Advanced chronic obstructive pulmonary disease. 4. We will continue to follow with other physicians caring for. I think current management is appropriate. Job ID: [id number]
[2019-02-20 04:18] LABS: #Basophils 0.1 thou/uL (0.0-0.2); #Lymphocytes 0.5 thou/uL (1.20-3.40); #Monocytes 0.1 thou/uL (0.11-0.59); #Neutrophils 3.9 thou/uL (1.40-6.50); %Basophils 1.5 % (0.0-1.0); %Eosinophils 0.2 % (0.0-10.0); %Lymphocytes 10.2 % (21.0-51.0); %Monocytes 2.9 % (0.0-10.0); %Neutrophils 85.2 % (42.0-75.0); Mean Corpuscular HGB CONC 29.7 g/dL (32.0-36.0); Mean Corpuscular Volume 90.7 fL (78.0-98.0); Mean Platelet Volume 10.6 fL (7.4-10.4); Platelet Count 164 thou/uL (130-400); RBC Distribution Width 23.1 % (11.5-14.5); Red Blood Cell (RBC) Count 5.55 mill/uL (4.20-5.40); White Blood Cell (WBC) Count 4.6 thou/uL (4.8-10.8)
[2019-02-20 04:38] LABS: BUN (Urea Nitrogen) 21 mg/dL (9.8-20.1); Calc. Creatinine Clearance 95 mL/min (70-130); Calcium 8.4 mg/dL (7.8-10.44); Estimated GFR-MDRD 89; Glucose 145 mg/dL (80-115)
[2019-02-20 04:47] LABS: Anion Gap 14 mmol/L (10-20); Carbon Dioxide 38 mmol/L (23-31); Chloride 90 mmol/L (98-107); Potassium 3.8 mmol/L (3.5-5.1); Sodium 138 mmol/L (136-145)
[2019-02-20] MEDS: methylPREDNISolone Sod Succ 40 MG VIAL IVP SCH ×3 (05:29→17:34)
[2019-02-20] MEDS: Mometasone/Formoterol 120 PUFF INHALER INH SCH ×2 (07:56→19:11)
[2019-02-20] MEDS: Furosemide 20 MG TAB PO SCH (08:25)
[2019-02-20] MEDS: guaiFENesin ER 600 MG TAB PO SCH ×2 (08:25→20:45)
[2019-02-20] MEDS: Aripiprazole 10 MG TAB PO SCH (08:25)
[2019-02-20] MEDS: Carvedilol 3.125 MG TAB PO SCH ×2 (08:25→21:53)
[2019-02-20] MEDS: Famotidine 20 MG TAB PO SCH ×2 (08:25→20:45)
[2019-02-20] MEDS: clonazePAM 0.5 MG TAB PO SCH (08:25)
[2019-02-20] MEDS: Aspirin 81 mg Enteric Coated Tablet PO SCH (08:26)
[2019-02-20] MEDS: Enoxaparin Sodium 40 MG/0.4 ML SYRINGE SC SCH (08:26)
--- NOTE | 2019-02-20 09:09 | PDOC.HOSPP ---
- Subjective Encounter Date: 02/20/19 Encounter Time: 11:50 Subjective: Patient feeling much better. Off BiPAP this AM. Breathing much more easily. No cough. Eating well. - Objective Vital Signs & Weight: Vital Signs (12 hours) Temp Pulse Resp Pulse Ox 02/20/19 07:55 87 21 H 91 L 02/20/19 07:31 97 02/20/19 07:15 98.2 F 02/20/19 03:00 98.0 F 02/20/19 00:12 80 17 02/19/19 23:00 98.6 F Weight Weight 149 lb Most Recent Monitor Data Heart Rate from ECG 80 NIBP 108/72 NIBP BP-Mean 84 Respiration from ECG 18 SpO2 96 I&O: 02/19/19 02/20/19 02/21/19 06:59 06:59 06:59 Intake Total 1280 Output Total 1225 Balance 55 Result Diagrams: 02/20/19 03:39 02/20/19 03:39 Hospitalist ROS - Review of Systems Constitutional: denies: fever, chills Respiratory: reports: shortness of breath. denies: cough Cardiovascular: denies: chest pain, palpitations, orthopnea Gastrointestinal: denies: nausea, vomiting, abdominal pain, diarrhea, constipation Genitourinary: denies: dysuria, hematuria - Medication Medications: Active Medications Generic Name Dose Route Start Last Admin Trade Name Freq PRN Reason Stop Dose Admin Albuterol/Ipratropium 3 ml 02/19/19 13:00 02/20/19 07:55 Duoneb NEB 3 ml [id number] CONCEPCION Administration Aripiprazole 10 mg 02/19/19 09:00 02/20/19 08:25 Abilify PO 10 mg DAILY CONCEPCION Administration Aspirin 81 mg 02/19/19 09:00 02/20/19 08:26 Ecotrin PO 81 mg DAILY CONCEPCION Administration Carvedilol 3.125 mg 02/19/19 09:00 02/20/19 08:25 Coreg PO 3.125 mg BID CONCEPCION Administration Clonazepam 1 mg 02/19/19 09:00 02/20/19 08:25 Klonopin PO 1 mg DAILY CONCEPCION Administration Enoxaparin Sodium 40 mg 02/19/19 09:00 02/20/19 08:26 Lovenox SC 40 mg 0900 CONCEPCION Administration Famotidine 20 mg 02/19/19 09:00 02/20/19 08:25 Pepcid PO 20 mg BID CONCEPCION Administration Furosemide 20 mg 02/20/19 09:00 02/20/19 08:25 Lasix PO 20 mg DAILY CONCEPCION Administration Guaifenesin 600 mg 02/19/19 09:00 02/20/19 08:25 Mucinex PO 600 mg BID CONCEPCION Administration Methylprednisolone Sodium Succinate 40 mg 02/19/19 12:00 02/20/19 05:29 Solu-Medrol IVP 40 mg Q6HR CONCEPCION Administration Mometasone Furoate/Formoterol Fumar 2 puff 02/19/19 18:30 02/20/19 07:56 Dulera 100 Mcg/5 Mcg Inhaler INH 2 puff BID-RT CONCEPCION Administration - Exam General Appearance: NAD Eye: anicteric sclera ENT: moist mucosa Heart: RRR, no murmur, no gallops, no rubs Respiratory: no wheezes, no rales, no ronchi Respiratory - other findings: some decreased breath sounds, decent air movement bilaterally Gastrointestinal: soft, non-tender, non-distended, normal bowel sounds Neurological: no focal deficits Psychiatric: normal affect, normal behavior, A&O x 3 Hosp A/P (1) Acute respiratory failure with hypoxia and hypercapnia Code(s): J96.01 - ACUTE RESPIRATORY FAILURE WITH HYPOXIA; J96.02 - ACUTE RESPIRATORY FAILURE WITH HYPERCAPNIA Status: Acute (2) COPD exacerbation Code(s): J44.1 - CHRONIC OBSTRUCTIVE PULMONARY DISEASE W (ACUTE) EXACERBATION Status: Acute (3) Acute diastolic (congestive) heart failure Code(s): I50.31 - ACUTE DIASTOLIC (CONGESTIVE) HEART FAILURE Status: Acute (4) HTN (hypertension) Code(s): I10 - ESSENTIAL (PRIMARY) HYPERTENSION Status: Chronic Qualifiers: Hypertension type: essential hypertension Qualified Code(s): I10 - Essential (primary) hypertension - Plan Patient markedly improved from the ER Off Bipap yesterday and able to eat Appreciate Dr. Chacon and Dr. Bergman's assistance Continue Steroids, nebs, oxygen, Bipap prn DVT Proph: Lovenox, SCDs while in bed
--- NOTE | 2019-02-20 23:45 | PRG ---
DATE OF SERVICE: 02/20/2019 SUBJECTIVE: She is feeling much better. OBJECTIVE: GENERAL: She is in no distress. VITAL SIGNS: Heart rate is in the 70s, blood pressure 101/63, respiratory rate is in the teens. LUNGS: Clear now. HEART: Regular rhythm. ABDOMEN: Soft. EXTREMITIES: Without edema. NEUROLOGIC: Nonfocal. LABORATORY DATA: White count 4.6, hemoglobin 15, platelets 164. Electrolytes are normal. Bicarb is 38. Blood gas on the showed a pH 7.25. I am sure she is dramatically better. IMPRESSION: 1. Severe chronic obstructive pulmonary. 2. Hypoxic respiratory failure with hypercarbia, it is chronic with acute decompensation. 3. Medical compliance is an issue with her. I do think it is reasonable to transition her into p.o. steroids now that she is clear. She is stable to move out of a monitored bed in my opinion. Job ID: [id number]
[2019-02-21 04:15] LABS: #Lymphocytes 0.6 thou/uL (1.20-3.40); #Monocytes 0.6 thou/uL (0.11-0.59); #Neutrophils 9.3 thou/uL (1.40-6.50); %Basophils 0.1 % (0.0-1.0); %Eosinophils 0.3 % (0.0-10.0); %Lymphocytes 5.8 % (21.0-51.0); %Monocytes 5.6 % (0.0-10.0); %Neutrophils 88.2 % (42.0-75.0); Hemoglobin 14.7 g/dL (12.0-16.0); Mean Corpuscular HGB CONC 27.6 g/dL (32.0-36.0); Mean Corpuscular Hemoglobin 26.2 pg (27.0-31.0); Mean Corpuscular Volume 94.9 fL (78.0-98.0); Mean Platelet Volume 11.3 fL (7.4-10.4); Platelet Count 169 thou/uL (130-400); RBC Distribution Width 23.5 % (11.5-14.5); Red Blood Cell (RBC) Count 5.62 mill/uL (4.20-5.40); White Blood Cell (WBC) Count 10.5 thou/uL (4.8-10.8)
[2019-02-21 04:29] LABS: BUN (Urea Nitrogen) 23 mg/dL (9.8-20.1); Calc. Creatinine Clearance 88 mL/min (70-130); Calcium 8.9 mg/dL (7.8-10.44); Estimated GFR-MDRD 82; Glucose 134 mg/dL (80-115)
[2019-02-21 04:38] LABS: Anion Gap 13 mmol/L (10-20); Carbon Dioxide 39 mmol/L (23-31); Chloride 88 mmol/L (98-107); Potassium 4.4 mmol/L (3.5-5.1); Sodium 136 mmol/L (136-145)
[2019-02-21] MEDS: Mometasone/Formoterol 120 PUFF INHALER INH SCH ×2 (06:36→18:36)
[2019-02-21] MEDS: Aspirin 81 mg Enteric Coated Tablet PO SCH (10:13)
[2019-02-21] MEDS: guaiFENesin ER 600 MG TAB PO SCH ×2 (10:13→20:10)
[2019-02-21] MEDS: predniSONE 20 MG TAB PO SCH (10:14)
[2019-02-21] MEDS: clonazePAM 0.5 MG TAB PO SCH (10:14)
[2019-02-21] MEDS: Furosemide 20 MG TAB PO SCH (10:14)
[2019-02-21] MEDS: Aripiprazole 10 MG TAB PO SCH (10:14)
[2019-02-21] MEDS: Carvedilol 3.125 MG TAB PO SCH ×2 (10:14→20:10)
[2019-02-21] MEDS: Enoxaparin Sodium 40 MG/0.4 ML SYRINGE SC SCH (10:15)
[2019-02-21] MEDS: Famotidine 20 MG TAB PO SCH ×2 (10:15→20:10)
--- NOTE | 2019-02-21 16:09 | PDOC.HOSPP ---
- Subjective Encounter Date: 02/21/19 Encounter Time: 16:05 Subjective: f/u for COPD exacerbation on BiPAP now on NC. No new complaints. - Objective Vital Signs & Weight: Vital Signs (12 hours) Temp Pulse Pulse Pulse Resp BP BP 02/21/19 15:25 99.6 F 02/21/19 13:15 78 16 02/21/19 11:55 79 78 103/68 101/65 02/21/19 11:17 98.4 F 02/21/19 08:00 02/21/19 07:21 97.2 F L 02/21/19 06:37 02/21/19 06:26 77 16 Pulse Ox Pulse Ox Pulse Ox Pulse Ox 02/21/19 15:25 02/21/19 13:15 02/21/19 11:55 90 L 92 L 94 L 02/21/19 11:17 02/21/19 08:00 95 02/21/19 07:21 02/21/19 06:37 95 02/21/19 06:26 95 Weight Weight 150 lb 3 oz Most Recent Monitor Data Heart Rate from ECG 81 NIBP 105/63 NIBP BP-Mean 77 Respiration from ECG 25 SpO2 92 I&O: 02/20/19 02/21/19 02/22/19 06:59 06:59 06:59 Intake Total 1280 600 Output Total 1225 750 Balance 55 -150 Result Diagrams: 02/21/19 03:37 02/21/19 03:37 Additional Labs: Laboratory Tests 02/19/19 02/19/19 02/20/19 03:40 03:42 03:39 BUN 20 21 H B-Natriuretic Peptide 501.1 H Radiology Reviewed by me: Yes (PCXR - interstitial densities bilat) EKG Reviewed by me: Yes (Tele - SR) Hospitalist ROS - Medication Medications: Active Medications Generic Name Dose Route Start Last Admin Trade Name Freq PRN Reason Stop Dose Admin Albuterol/Ipratropium 3 ml 02/19/19 13:00 02/21/19 13:15 Duoneb NEB 3 ml [id number] CONCEPCION Administration Aripiprazole 10 mg 02/19/19 09:00 02/21/19 10:14 Abilify PO 10 mg DAILY CONCEPCION Administration Aspirin 81 mg 02/19/19 09:00 02/21/19 10:13 Ecotrin PO 81 mg DAILY CONCEPCION Administration Carvedilol 3.125 mg 02/19/19 09:00 02/21/19 10:14 Coreg PO Not Given BID CONCEPCION Clonazepam 1 mg 02/19/19 09:00 02/21/19 10:14 Klonopin PO 1 mg DAILY CONCEPCION Administration Enoxaparin Sodium 40 mg 02/19/19 09:00 02/21/19 10:15 Lovenox SC 40 mg 0900 CONCEPCION Administration Famotidine 20 mg 02/19/19 09:00 02/21/19 10:15 Pepcid PO 20 mg BID CONCEPCION Administration Furosemide 20 mg 02/20/19 09:00 02/21/19 10:14 Lasix PO 20 mg DAILY CONCEPCION Administration Guaifenesin 600 mg 02/19/19 09:00 02/21/19 10:13 Mucinex PO 600 mg BID CONCEPCION Administration Mometasone Furoate/Formoterol Fumar 2 puff 02/19/19 18:30 02/21/19 06:36 Dulera 100 Mcg/5 Mcg Inhaler INH 2 puff BID-RT CONCEPCION Administration Prednisone 40 mg 02/21/19 08:00 02/21/19 10:14 Prednisone PO 40 mg QAM-WM CONCEPCION Administration - Exam General Appearance: NAD, awake alert Eye: PERRL, anicteric sclera ENT: normocephalic atraumatic, no oropharyngeal lesions Neck: supple, symmetric, no JVD, no thyromegaly, no lymphadenopathy Heart: RRR, no murmur, no gallops, no rubs, normal peripheral pulses Respiratory - other findings: diminished in bilat bases Gastrointestinal: soft, non-tender, non-distended, normal bowel sounds, no palpable masses Extremities: no cyanosis, no clubbing, no edema Skin: normal turgor, no lesions Neurological: cranial nerve grossly intact, no new deficit Musculoskeletal: normal tone, normal strength Psychiatric: A&O x 3, flat affect Hosp A/P (1) Acute respiratory failure with hypoxia and hypercapnia Code(s): J96.01 - ACUTE RESPIRATORY FAILURE WITH HYPOXIA; J96.02 - ACUTE RESPIRATORY FAILURE WITH HYPERCAPNIA Status: Acute Plan: Improved, continue Duonebs, Prednisone, O2 supplementation (2) COPD exacerbation Code(s): J44.1 - CHRONIC OBSTRUCTIVE PULMONARY DISEASE W (ACUTE) EXACERBATION Status: Acute Plan: See above #1 for mgmt (3) Metabolic alkalosis Code(s): E87.3 - ALKALOSIS Status: Chronic Plan: Secondary to COPD (4) Acute diastolic (congestive) heart failure Code(s): I50.31 - ACUTE DIASTOLIC (CONGESTIVE) HEART FAILURE Status: Acute Plan: Improved, continue Lasix and Coreg - Plan PT/OT, social work coordinator, respiratory therapy, out of bed/ambulate, DVT proph w/ SCDs Stable currently Continue Prednisone Continue Duonebs OOB/ambulate Titrate O2 supplementation Transfer to medical [place] home in 24h
--- NOTE | 2019-02-21 17:21 | PRG ---
DATE OF SERVICE: 02/21/2019 SUBJECTIVE: Gladys Jimenes says she is feeling better. She has no fever, chills, or sweats. OBJECTIVE: LUNGS: Distant clear. HEART: Regular rhythm. ABDOMEN: Soft. She wants to go home. LABORATORY DATA: White count 10.5, hemoglobin 14.7, and platelets 169. Sodium 136, potassium 4.4, chloride 88, bicarb 39, BUN 23, and creatinine 0.72. IMPRESSION AND PLAN: Chronic obstructive pulmonary disease exacerbation, slowly improving. She is on prednisone now. It is reasonable for her to be discharged 24 to 48 hours. It would not be unreasonable for her to be discharged today with oxygen if she qualifies. Job ID: [id number]
[2019-02-22] MEDS: Mometasone/Formoterol 120 PUFF INHALER INH SCH (06:56)
[2019-02-22] MEDS: Carvedilol 3.125 MG TAB PO SCH (08:20)
[2019-02-22] MEDS: clonazePAM 0.5 MG TAB PO SCH (08:20)
[2019-02-22] MEDS: Aripiprazole 10 MG TAB PO SCH (08:20)
[2019-02-22] MEDS: Aspirin 81 mg Enteric Coated Tablet PO SCH (08:20)
[2019-02-22] MEDS: predniSONE 20 MG TAB PO SCH (08:21)
[2019-02-22] MEDS: Enoxaparin Sodium 40 MG/0.4 ML SYRINGE SC SCH (08:21)
[2019-02-22] MEDS: Famotidine 20 MG TAB PO SCH (08:21)
[2019-02-22] MEDS: guaiFENesin ER 600 MG TAB PO SCH (08:21)
[2019-02-22] MEDS: Furosemide 20 MG TAB PO SCH (08:21)
[2019-02-22 16:12] VITALS: BP 112/72; TEMP 98
--- NOTE | 2019-02-23 01:40 | DIS ---
DATE OF ADMISSION: 02/19/2019 DATE OF DISCHARGE: 02/22/2019 DISCHARGE DIAGNOSES: 1. Acute hypoxic hypercapnic respiratory failure secondary to #2, improved. 2. Chronic obstructive pulmonary disease exacerbation. 3. Metabolic alkalosis secondary to chronic obstructive pulmonary disease. 4. Acute diastolic congestive heart failure with ejection fraction of 50-55 percent. CONSULTATIONS: Dr. Chacon with Pulmonology Service. PERTINENT LAB AND X-RAY FINDINGS: CO2 ranged between 36 to 39. Magnesium level 1.8. BNP 501, previously noted at 110 on 01/25/2019. CBC showed a white blood cell count ranging between 4.6 to 10.5, hemoglobin ranging between 14.7 to 16.4. Portable chest x-ray dated 02/19/2019 showed perihilar interstitial densities, greater on the right lung base. No focal consolidation. HOSPITAL COURSE: The patient was initially admitted to the intermediate care unit after presenting with increased shortness of breath in the context of COPD exacerbation. In the emergency room, the patient was found with respiratory rates in the 60s with O2 saturations on room air in the 40% range. The patient was placed on oxygen supplementation and eventual BiPAP noninvasive mechanical ventilation and given bronchodilator therapy and IV Solu-Medrol. The patient was transferred to the Intermediate Care Unit receiving aggressive pulmonary supportive management for approximately 36 hours. The patient transitioned off BiPAP noninvasive mechanical ventilation, however, continued to require oxygen supplementation by nasal cannula. The patient also received IV Lasix due to mild diastolic heart failure exacerbation. The patient did clinically stabilize and was transitioned to the medical floor receiving ongoing pulmonary supportive management. The patient was given a trial off oxygen supplementation; however O2 saturations were noted in the mid 80% range on room air. The patient was coordinated for home oxygen care and set up for home oxygen prior to discharge. I have examined the patient at the time of discharge and discussed followup instructions. The patient verbalized understanding and agreement ready for discharge on 02/22/2019. DISCHARGE MEDICATIONS: 1. Abilify 10 mg p.o. daily. 2. Enteric-coated aspirin 81 mg p.o. daily. 3. Clozapine 25 mg p.o. daily. 4. Advair Diskus inhaler 2 inhalations b.i.d. 5. Ventolin HFA 2 puffs inhaled q.4 hours p.r.n. 6. Coreg 3.125 mg p.o. b.i.d. 7. Lasix 20 mg p.o. daily. 8. Mucinex ER 600 mg p.o. b.i.d. 9. DuoNeb 3 mL nebulized q.6 hours p.r.n. 10. Prednisone 20 mg take 2 tablets p.o. daily x2 days followed by 1 tablet p.o. daily x2 days followed by half a tablet p.o. daily x2 days. FOLLOWUP: The patient to follow up with her primary care provider at [facility] on 03/01/2019 at 8:00 a.m. The patient may follow up with Dr. Chay Chacon and to call his office for appointment time and date. CONDITION ON DISCHARGE: Stable. ACTIVITY: Ad-nicanor. DIET: Heart healthy. CODE STATUS: Intubate only. DISPOSITION: To home 02/22/2019. TIME SPENT: Total time preparing and coordinating discharge is 34 minutes. Job ID: [id number]
--- NOTE | 2019-02-24 11:18 | EKG ---
Test Reason : Blood Pressure : / mmHG Vent. Rate : 103 BPM Atrial Rate : 103 BPM P-R Int : 134 ms QRS Dur : 084 ms QT Int : 346 ms P-R-T Axes : 076 064 046 degrees QTc Int : 453 ms Sinus tachycardia Right atrial enlargement Borderline ECG Confirmed by CHAI RUIZ M.D. ([id number]), editor department VASHTI DALTON ([id number] on 02/24/2019 11:18:46 AM Referred By: Confirmed By:CHAI RUIZ M.D.
== END 2019-02-22 18:21 | disposition home or self-care (01) | DRG 291 ==
LOC: ERS 03:33 → IMCU/EMU 05:48 → T4-B 02-21 18:42
PROVIDERS: ADMIT Internal Medicine; ATTEND Internal Medicine
DX: I11.0 Hypertensive heart disease with heart failure (principal); J96.01 Acute respiratory failure with hypoxia; I50.31 Acute diastolic (congestive) heart failure; J96.02 Acute respiratory failure with hypercapnia; J44.1 Chronic obstructive pulmonary disease with (acute) exacerbation; E87.3 Alkalosis; Z79.82 Long term (current) use of aspirin; Z79.899 Other long term (current) drug therapy; Z88.0 Allergy status to penicillin; Z87.891 Personal history of nicotine dependence
CPT/HCPCS: 36415; 71045; 80048; 80053; 82805; 83735; 83880; 84484; 85025; 93005; 93798; 94640; 94660; 96365; 96367; 96375; 99292; 99406; J1650; J1940; J1956; J2920; J2930; J3475; J7512; J7611; J7620

== ENCOUNTER 2020-10-12 16:51 | Inpatient (IN) | payer SELFPAY ==
[2020-10-12] MEDS ORDERED: methylPREDNISolone Sod Succ/PF 125 MG/2 ML VIAL ONE (17:07)
[2020-10-12 17:35] LABS: #Basophils 0.1 thou/uL (0.0-0.2); #Lymphocytes 1.1 thou/uL (1.20-3.40); #Monocytes 0.5 thou/uL (0.11-0.59); %Basophils 0.6 % (0.0-1.0); %Eosinophils 0.2 % (0.0-10.0); %Lymphocytes 11.2 % (21.0-51.0); %Monocytes 4.9 % (0.0-10.0)
[2020-10-12 17:56] LABS: ALT (SGPT) 11 U/L (8-55); AST (SGOT) 10 U/L (5-34); Albumin 4.2 g/dL (3.4-4.8); Alkaline Phosphatase 69 U/L (40-110); BUN (Urea Nitrogen) 10 mg/dL (9.8-20.1); Bilirubin, Total 0.3 mg/dL (0.2-1.2); Calc. Creatinine Clearance 0 mL/min (70-130); Calcium 10.1 mg/dL (7.8-10.44); Globulin 2.5 g/dL (2.4-3.5); Glucose 117 mg/dL (80-115); Protein, Total 6.7 g/dL (5.8-8.1)
[2020-10-12 18:00] LABS: Elliptocytes SLIGHT = 2-5 cells (100X) (0-1/hpf); MDiff Complete? YES; Macrocytosis MODERATE=16-30 cells (100X) (0-5/hpf); Mean Corpuscular HGB CONC 31.5 g/dL (32.0-36.0); Mean Platelet Volume 8.3 fL (7.4-10.4); Platelet Count 181 thou/uL (130-400); Platelet Morphology Comment Appears Adequate; Red Blood Cell (RBC) Count 3.95 mill/uL (4.20-5.40); Reflex for Review?? YES; Stomatocytes MARKED = >16 cells (100X) (0-1/hpf); White Blood Cell (WBC) Count 9.6 thou/uL (4.8-10.8)
[2020-10-12 18:06] LABS: Anion Gap 16 mmol/L (10-20); Chloride 85 mmol/L (98-107); Potassium 3.7 mmol/L (3.5-5.1); Sodium 145 mmol/L (136-145)
[2020-10-12 18:10] LABS: Carbon Dioxide 48 mmol/L (23-31)
[2020-10-12 18:19] LABS: SARS-CoV-2 NAA Rapid Test Not Detected (NotDetected)
[2020-10-12 18:49] LABS: Actual Bicarbonate (HCO3a) 52.7 mEq/L (22-28); Analyzer IN Cardio ER; Base Excess (BEa) 22.3 mEq/L (-2.0 to +3.0); Calcium, Ionized (arterial) 1.17 mmol/L (1.12-1.30); Carboxyhemoglobin (COHb) 1.3 gm% (0.0-3.0); Hemoglobin (Hb) 12.7 g/dL (12.0-16.0); Potassium - ABG Lab 3.59 mmol/L (3.70-5.30); pH, Arterial 7.37 (7.35-7.45)
[2020-10-12 18:52] LABS: CO2 Tension 93.5 mmHg (35.0-45.0); O2 Tension (PaO2), arterial 58.9 mmHg (> 80.0)
[2020-10-12 18:53] LABS: Puncture Site RRA
[2020-10-12 18:55] LABS: ALV-art Gradient 80.905 mmHg (0-20)
[2020-10-12] MEDS ORDERED: Acetaminophen 325 MG TAB PO PRN (20:26)
[2020-10-12] MEDS ORDERED: Ondansetron ODT 4 MG TAB PO PRN (20:26)
[2020-10-12] MEDS ORDERED: Bisacodyl 5 MG TAB PO PRN (20:26)
[2020-10-12] MEDS ORDERED: Ipratropium Bromide 2.5 ml Neb NEB PRN (20:26)
[2020-10-12] MEDS ORDERED: Zolpidem Tartrate 5 MG TAB PO PRN (20:26)
[2020-10-12] MEDS ORDERED: Nicotine 21 MG PATCH TD SCH (20:30)
[2020-10-12 21:05] VITALS: BMI 18.7
[2020-10-12] MEDS: guaiFENesin ER 600 MG TAB PO SCH (21:30)
[2020-10-12] MEDS: Famotidine 20 MG TAB PO SCH (21:31)
[2020-10-13] MEDS: methylPREDNISolone Sod Succ 40 MG VIAL IVP SCH ×2 (00:04→05:38)
[2020-10-13 06:19] LABS: BUN (Urea Nitrogen) 14 mg/dL (9.8-20.1); Calc. Creatinine Clearance 87 mL/min (70-130); Glucose 150 mg/dL (80-115)
[2020-10-13 06:20] LABS: ALT (SGPT) 8 U/L (8-55); AST (SGOT) 7 U/L (5-34); Albumin 3.7 g/dL (3.4-4.8); Alkaline Phosphatase 59 U/L (40-110); Bilirubin, Total 0.2 mg/dL (0.2-1.2); Calcium 9.4 mg/dL (7.8-10.44); Protein, Total 5.7 g/dL (5.8-8.1)
[2020-10-13 06:29] LABS: Anion Gap 11 mmol/L (10-20); Chloride 86 mmol/L (98-107); Potassium 3.1 mmol/L (3.5-5.1); Sodium 141 mmol/L (136-145)
[2020-10-13 06:33] LABS: Carbon Dioxide 47 mmol/L (23-31)
[2020-10-13 07:54] VITALS: BP 111/73; TEMP 97.6
[2020-10-13] MEDS ORDERED: Bupropion 150 MG SR TAB PO SCH (09:00)
[2020-10-13] MEDS ORDERED: Enoxaparin Sodium 40 MG/0.4 ML SYRINGE SC SCH (09:00)
[2020-10-13] MEDS ORDERED: AcetaZOLAMIDE 250 MG TAB PO SCH (09:00)
[2020-10-13] MEDS: Famotidine 20 MG TAB PO SCH (09:34)
[2020-10-13] MEDS: guaiFENesin ER 600 MG TAB PO SCH (09:34)
== END 2020-10-13 10:55 | disposition home or self-care (01) | DRG 189 ==
LOC: ERS 16:51 → SURG B 19:39
PROVIDERS: ADMIT Internal Medicine; ATTEND Internal Medicine
DX: J96.22 Acute and chronic respiratory failure with hypercapnia (principal); J44.1 Chronic obstructive pulmonary disease with (acute) exacerbation; F17.210 Nicotine dependence, cigarettes, uncomplicated; I10 Essential (primary) hypertension; I69.919 Unspecified symptoms and signs involving cognitive functions following unspecified cerebrovascular disease; Z20.822 Contact with and (suspected) exposure to COVID-19; Z88.0 Allergy status to penicillin; Z79.82 Long term (current) use of aspirin; Z79.899 Other long term (current) drug therapy; Z99.81 Dependence on supplemental oxygen
CPT/HCPCS: 0240U; 36415; 36600; 71045; 80053; 82805; 83880; 84484; 85025; 85060; 85379; 93005; 94640; 94760; 96374; J1650; J2920; J2930; J7620

== ENCOUNTER 2020-12-10 12:21 | Outpatient (CLI) | payer OTHER | END 2020-12-10 12:22 | disposition home or self-care (01) | LOC: RAD 12:21 | PROVIDERS: ATTEND Internal Medicine Critical Care Medicine | DX: R06.00 Dyspnea, unspecified (principal); J43.9 Emphysema, unspecified | CPT/HCPCS: 71046 ==

== ENCOUNTER 2021-02-21 11:50 | Emergency (ER) | payer SELFPAY ==
[2021-02-21 13:04] LABS: #Eosinphils 0.1 thou/uL (0.0-0.7); #Lymphocytes 0.6 thou/uL (1.20-3.40); #Monocytes 0.5 thou/uL (0.11-0.59); #Neutrophils 4.3 thou/uL (1.40-6.50); %Eosinophils 1.7 % (0.0-10.0); %Lymphocytes 10.2 % (21.0-51.0); %Monocytes 9.7 % (0.0-10.0); %Neutrophils 78.4 % (42.0-75.0); Hemoglobin 11.9 g/dL (12.0-16.0); Mean Corpuscular HGB CONC 29.5 g/dL (32.0-36.0); Mean Corpuscular Hemoglobin 30.7 pg (27.0-31.0); RBC Distribution Width 11.9 % (11.5-14.5); Red Blood Cell (RBC) Count 3.88 mill/uL (4.20-5.40); White Blood Cell (WBC) Count 5.5 thou/uL (4.8-10.8)
[2021-02-21 13:15] LABS: ALT (SGPT) 12 U/L (8-55); AST (SGOT) 13 U/L (5-34); Albumin 3.9 g/dL (3.4-4.8); Alkaline Phosphatase 62 U/L (40-110); BUN (Urea Nitrogen) 9 mg/dL (9.8-20.1); Bilirubin, Total 0.3 mg/dL (0.2-1.2); Calc. Creatinine Clearance 0 mL/min (70-130); Calcium 10.1 mg/dL (7.8-10.44); Globulin 2.5 g/dL (2.4-3.5); Glucose 109 mg/dL (80-115); Protein, Total 6.4 g/dL (5.8-8.1)
[2021-02-21 13:27] LABS: Anion Gap 21 mmol/L (10-20); Chloride 84 mmol/L (98-107); Potassium 3.4 mmol/L (3.5-5.1); Sodium 144 mmol/L (136-145)
[2021-02-21 13:30] LABS: Carbon Dioxide 42 mmol/L (23-31)
[2021-02-21] MEDS ORDERED: methylPREDNISolone Sod Succ/PF 125 MG/2 ML VIAL ONE (13:30)
[2021-02-21] MEDS ORDERED: Magnesium 2 GM/50 ML BAG (IN WATER) ONE (13:30)
[2021-02-21 13:31] LABS: Hypochromia SLIGHT = 6-15 cells (100X) (0-5/hpf); MDiff Complete? YES; Mean Platelet Volume 7.8 fL (7.4-10.4); Platelet Count 110 thou/uL (130-400); Platelet Morphology Comment Appears Decreased; Polychromasia SLIGHT = 2-3 cells (100X) (0-2/hpf); Stomatocytes SLIGHT = 2-5 cells (100X) (0-1/hpf)
[2021-02-21] MEDS ORDERED: Albuterol 200 PUFF (6.7GM INHALER) ONE (14:25)
[2021-02-21 14:34] LABS: Actual Bicarbonate (HCO3a) 55.1 mEq/L (22-28); Analyzer IN Cardio ER; Base Excess (BEa) 24.8 mEq/L (-2.0 to +3.0); Calcium, Ionized (arterial) 1.17 mmol/L (1.12-1.30); Carboxyhemoglobin (COHb) 0.5 gm% (0.0-3.0); Hemoglobin (Hb) 12.1 g/dL (12.0-16.0); pH, Arterial 7.38 (7.35-7.45)
[2021-02-21 14:38] LABS: CO2 Tension 94.9 mmHg (35.0-45.0)
[2021-02-21 14:41] LABS: ALV-art Gradient 113.095 mmHg (0-20); Puncture Site LRA
== END 2021-02-21 15:08 | disposition home or self-care (01) ==
LOC: ERS 11:50
DX: J44.1 Chronic obstructive pulmonary disease with (acute) exacerbation (principal); F17.200 Nicotine dependence, unspecified, uncomplicated
CPT/HCPCS: 36415; 36600; 71045; 80053; 82805; 83880; 84484; 85025; 93005; 94664; 96365; 96375; J2930; J3475

== ENCOUNTER 2021-03-20 12:02 | Inpatient (IN) | payer SELFPAY ==
[2021-03-20 12:30] LABS: #Eosinphils 0.1 thou/uL (0.0-0.7); #Lymphocytes 1.2 thou/uL (1.20-3.40); #Monocytes 0.7 thou/uL (0.11-0.59); #Neutrophils 7.1 thou/uL (1.40-6.50); %Basophils 0.4 % (0.0-1.0); %Eosinophils 1.3 % (0.0-10.0); %Lymphocytes 12.9 % (21.0-51.0); %Monocytes 7.8 % (0.0-10.0); %Neutrophils 77.6 % (42.0-75.0); Mean Corpuscular HGB CONC 30.8 g/dL (32.0-36.0); Mean Corpuscular Hemoglobin 32.5 pg (27.0-31.0); Mean Platelet Volume 7.3 fL (7.4-10.4); Platelet Count 196 thou/uL (130-400); RBC Distribution Width 12.1 % (11.5-14.5); Red Blood Cell (RBC) Count 3.37 mill/uL (4.20-5.40); White Blood Cell (WBC) Count 9.2 thou/uL (4.8-10.8)
[2021-03-20 12:49] LABS: MDiff Complete? YES
[2021-03-20 12:50] LABS: ALT (SGPT) 14 U/L (8-55); AST (SGOT) 11 U/L (5-34); Albumin 4.1 g/dL (3.4-4.8); Alkaline Phosphatase 71 U/L (40-110); BUN (Urea Nitrogen) 12 mg/dL (9.8-20.1); Bilirubin, Total 0.3 mg/dL (0.2-1.2); Calc. Creatinine Clearance 0 mL/min (70-130); Calcium 9.6 mg/dL (7.8-10.44); Globulin 2.6 g/dL (2.4-3.5); Glucose 123 mg/dL (80-115); Macrocytosis SLIGHT = 6-15 cells (100X) (0-5/hpf); Platelet Morphology Comment Appears Adequate; Polychromasia SLIGHT = 2-3 cells (100X) (0-2/hpf); Protein, Total 6.7 g/dL (5.8-8.1); Stomatocytes SLIGHT = 2-5 cells (100X) (0-1/hpf)
[2021-03-20] MEDS ORDERED: methylPREDNISolone Sod Succ/PF 125 MG/2 ML VIAL ONE (13:03)
[2021-03-20] MEDS ORDERED: Magnesium 2 GM/50 ML BAG (IN WATER) ONE (13:03)
[2021-03-20 13:06] LABS: Anion Gap 6 mmol/L (10-20); Chloride 82 mmol/L (98-107); Potassium 3.4 mmol/L (3.5-5.1); Sodium 141 mmol/L (136-145)
[2021-03-20 13:22] LABS: Carbon Dioxide 56 mmol/L (23-31)
[2021-03-20 15:19] LABS: Analyzer IN Cardio ER; Base Excess (BEa) 23.9 mEq/L (-2.0 to +3.0); Calcium, Ionized (arterial) 1.11 mmol/L (1.12-1.30); Carboxyhemoglobin (COHb) 1.9 gm% (0.0-3.0); Hemoglobin (Hb) 10.7 g/dL (12.0-16.0); Potassium - ABG Lab 3.46 mmol/L (3.70-5.30); pH, Arterial 7.35 (7.35-7.45)
[2021-03-20 15:21] LABS: CO2 Tension 99.1 mmHg (35.0-45.0); Puncture Site RRA
[2021-03-20] MEDS ORDERED: cloNIDine 0.1 MG TAB PO PRN (18:03)
[2021-03-20] MEDS ORDERED: Bisacodyl 10 MG SUPP PR PRN (18:04)
[2021-03-20] MEDS ORDERED: Calcium Carbonate 500 MG ChewTAB PO PRN (18:04)
[2021-03-20] MEDS ORDERED: Potassium Chloride 20 MEQ TAB PO SCH (18:15)
[2021-03-20] MEDS: methylPREDNISolone Sod Succ 40 MG VIAL IVP SCH ×2 (18:34→23:21)
[2021-03-20] MEDS: Mometasone 200 MCG/Formoterol 5 MCG 120 PUFF INHALER INH SCH (19:46)
[2021-03-20] MEDS: Senokot S 8.6-50 MG TAB PO SCH (20:15)
[2021-03-20] MEDS: Famotidine 20 MG TAB PO SCH (20:15)
[2021-03-20] MEDS: guaiFENesin ER 600 MG TAB PO SCH (20:15)
[2021-03-20 21:45] LABS: SARS-CoV-2 PCR by NAA Not Detected (NotDetected)
[2021-03-21 03:59] LABS: #Lymphocytes 0.3 thou/uL (1.20-3.40); #Neutrophils 4.6 thou/uL (1.40-6.50); %Basophils 0.7 % (0.0-1.0); %Eosinophils 0.3 % (0.0-10.0); %Lymphocytes 6.3 % (21.0-51.0); %Monocytes 0.9 % (0.0-10.0); %Neutrophils 91.8 % (42.0-75.0); Hemoglobin 9.3 g/dL (12.0-16.0); Mean Corpuscular Hemoglobin 31.9 pg (27.0-31.0); Mean Platelet Volume 7.6 fL (7.4-10.4); Platelet Count 164 thou/uL (130-400); RBC Distribution Width 12.1 % (11.5-14.5); Red Blood Cell (RBC) Count 2.92 mill/uL (4.20-5.40)
[2021-03-21 04:21] LABS: BUN (Urea Nitrogen) 11 mg/dL (9.8-20.1); Calc. Creatinine Clearance 85 mL/min (70-130); Calcium 8.7 mg/dL (7.8-10.44); Glucose 129 mg/dL (80-115); Magnesium 1.9 mg/dL (1.6-2.6)
[2021-03-21 04:30] LABS: Chloride 85 mmol/L (98-107); Potassium 3.1 mmol/L (3.5-5.1); Sodium 139 mmol/L (136-145)
[2021-03-21 04:33] LABS: Anion Gap 13 mmol/L (10-20)
[2021-03-21 04:36] LABS: Carbon Dioxide 44 mmol/L (23-31); Phosphorus 1.6 mg/dL (2.3-4.7)
[2021-03-21] MEDS ORDERED: Electrolyte Replacement Protocol FS PRN (04:57)
[2021-03-21] MEDS ORDERED: Electrolyte Replacement Protocol 1 EACH FS PRN (04:58)
[2021-03-21] MEDS ORDERED: Potassium Phosphate 15 MMOL in Sodium Chloride 0.9% 250 ML 250 ML IVPB SCH (05:00)
[2021-03-21] MEDS ORDERED: Magnesium 2 GM/50 ML 2 GM in Premix Bag 1 BAG IVPB SCH (05:15)
[2021-03-21] MEDS ORDERED: Potassium Chloride 20 MEQ in Premix Bag 1 BAG IVPB SCH (05:15)
[2021-03-21] MEDS ORDERED: Potassium Chloride 20 MEQ TAB PO SCH (05:30)
[2021-03-21] MEDS: methylPREDNISolone Sod Succ 40 MG VIAL IVP SCH ×3 (05:33→18:01)
[2021-03-21] MEDS: Acetaminophen 325 MG TAB PO PRN ×2 (06:31→11:14)
[2021-03-21] MEDS: Famotidine 20 MG TAB PO SCH (07:30)
[2021-03-21] MEDS: Senokot S 8.6-50 MG TAB PO SCH (07:31)
[2021-03-21] MEDS: guaiFENesin ER 600 MG TAB PO SCH (07:31)
[2021-03-21] MEDS: Mometasone 200 MCG/Formoterol 5 MCG 120 PUFF INHALER INH SCH ×2 (08:05→19:00)
[2021-03-21] MEDS ORDERED: Folic Acid 1 MG TAB PO SCH (09:00)
[2021-03-21] MEDS ORDERED: Cyanocobalamin (Vitamin B-12) 1,000 MCG TAB PO SCH (09:00)
[2021-03-21] MEDS ORDERED: Enoxaparin Sodium 30 MG/0.3 ML SYRINGE SC SCH (09:00)
[2021-03-21] MEDS ORDERED: Multivit, Therapeutic 1 TAB PO SCH (09:00)
[2021-03-21] MEDS: Potassium Chloride 20 MEQ TAB PO SCH ×2 (11:15→18:01)
[2021-03-21 12:22] VITALS: BMI 18.1
[2021-03-21 19:46] VITALS: BP 127/72; TEMP 98.3
[2021-03-21] MEDS ORDERED: Carvedilol 3.125 MG TAB PO SCH (21:00)
[2021-03-21] MEDS ORDERED: Aripiprazole 10 MG TAB PO SCH (21:00)
[2021-03-22] MEDS ORDERED: clonazePAM 1 MG TAB PO SCH (09:00)
[2021-03-22] MEDS ORDERED: Aspirin 81 mg Enteric Coated Tablet PO SCH (09:00)
== END 2021-03-21 20:15 | disposition left against medical advice (07) | DRG 189 ==
LOC: ERS 12:02 → IMCU/EMU 15:43 → T4-A 03-21 17:35
PROVIDERS: ADMIT Internal Medicine; ATTEND Internal Medicine
DX: J96.21 Acute and chronic respiratory failure with hypoxia (principal); J44.1 Chronic obstructive pulmonary disease with (acute) exacerbation; I50.32 Chronic diastolic (congestive) heart failure; E87.4 Mixed disorder of acid-base balance; J96.22 Acute and chronic respiratory failure with hypercapnia; Z20.822 Contact with and (suspected) exposure to COVID-19; Z53.29 Procedure and treatment not carried out because of patient's decision for other reasons; I11.0 Hypertensive heart disease with heart failure; F41.9 Anxiety disorder, unspecified; E87.6 Hypokalemia; D53.9 Nutritional anemia, unspecified; E83.42 Hypomagnesemia; E83.39 Other disorders of phosphorus metabolism; E78.5 Hyperlipidemia, unspecified; Z87.891 Personal history of nicotine dependence; Z99.81 Dependence on supplemental oxygen; Z88.0 Allergy status to penicillin; Z79.899 Other long term (current) drug therapy; Z79.82 Long term (current) use of aspirin; Z79.51 Long term (current) use of inhaled steroids; Z79.52 Long term (current) use of systemic steroids
CPT/HCPCS: 36415; 36600; 71045; 80048; 80053; 82805; 83735; 83880; 84100; 84484; 85025; 93005; 94640; 94660; 96365; 96375; J1650; J1956; J2920; J2930; J3475; J7050; J7620; U0003; U0005

== ENCOUNTER 2021-09-27 21:40 | Inpatient (IN) | payer MEDICARE, SELFPAY ==
[2021-09-27] MEDS ORDERED: methylPREDNISolone Sod Succ/PF 125 MG/2 ML VIAL ONE (22:16)
[2021-09-27] MEDS ORDERED: Levofloxacin 500 mg/D5W 100 ml Premix Bag ONE ×2 (22:16→22:17)
[2021-09-27] MEDS ORDERED: Magnesium 2 GM/50 ML BAG (IN WATER) ONE (22:16)
[2021-09-27 22:18] LABS: Analyzer IN Cardio ER; Base Excess 24.8 mEq/L (-2.0 to +3.0); Calcium, Ionized (venous) 1.08 mmol/L (1.16-1.32); Chloride (VBG) 90 mmol/L (98-106); Hemoglobin (Hb) 12.6 g/dL (11.7-16.0); Potassium (VBG) 3.47 mmol/L (3.70-5.30); Sodium 141.7 mmol/L (133-146); pH (venous) 7.34 (7.32-7.43)
[2021-09-27 22:23] LABS: Actual Bicarbonate (HCO3v) 56 mEq/L (22-28)
[2021-09-27 22:52] LABS: #Monocytes 0.6 thou/uL (0.11-0.59); #Neutrophils 6.2 thou/uL (1.40-6.50); %Basophils 0.6 % (0.0-1.0); %Eosinophils 0.4 % (0.0-10.0); %Lymphocytes 12.7 % (21.0-51.0); %Monocytes 7.6 % (0.0-10.0); %Neutrophils 78.7 % (42.0-75.0); Hemoglobin 12.6 g/dL (12.0-16.0); Mean Corpuscular HGB CONC 31.4 g/dL (32.0-36.0); Mean Corpuscular Hemoglobin 33.7 pg (27.0-31.0); Mean Platelet Volume 8.1 fL (7.4-10.4); Platelet Count 189 thou/uL (130-400); RBC Distribution Width 13.1 % (11.5-14.5); Red Blood Cell (RBC) Count 3.75 mill/uL (4.20-5.40); White Blood Cell (WBC) Count 7.9 thou/uL (4.8-10.8)
[2021-09-27 23:06] LABS: ALT (SGPT) 23 U/L (8-55); AST (SGOT) 22 U/L (5-34); Albumin 4.4 g/dL (3.4-4.8); Alkaline Phosphatase 85 U/L (40-110); BUN (Urea Nitrogen) 13 mg/dL (9.8-20.1); Bilirubin, Total 0.3 mg/dL (0.2-1.2); Calc. Creatinine Clearance 0 mL/min (70-130); Calcium 9.9 mg/dL (7.8-10.44); Estimated GFR 97; Globulin 2.2 g/dL (2.4-3.5); Glucose 178 mg/dL (80-115); Lipase 16 U/L (8-78); Protein, Total 6.6 g/dL (5.8-8.1)
[2021-09-27 23:11] LABS: Hypochromia SLIGHT = 6-15 cells (100X) (0-5/hpf); MDiff Complete? YES; Macrocytosis MODERATE=16-30 cells (100X) (0-5/hpf); Ovalocytes SLIGHT = 2-5 cells (100X) (0-1/hpf); Platelet Morphology Comment Appears Adequate; Polychromasia SLIGHT = 2-3 cells (100X) (0-2/hpf); Stomatocytes SLIGHT = 2-5 cells (100X) (0-1/hpf)
[2021-09-27 23:17] LABS: Anion Gap 23 mmol/L (10-20); Chloride 87 mmol/L (98-107); Sodium 148 mmol/L (136-145)
[2021-09-27 23:20] LABS: Carbon Dioxide 42 mmol/L (23-31)
[2021-09-28 00:22] LABS: SARS-CoV-2 NAA Rapid Test Not Detected (NotDetected)
[2021-09-28] MEDS ORDERED: Acetaminophen 500 MG TAB ONE (00:58)
[2021-09-28] MEDS ORDERED: Ondansetron ODT 4 MG TAB SL PRN (01:00)
[2021-09-28] MEDS ORDERED: Acetaminophen 325 MG TAB PO PRN (01:00)
[2021-09-28] MEDS ORDERED: Ondansetron PF 4 MG/2 ML Vial IVP PRN (01:00)
[2021-09-28 01:50] LABS: Troponin I Less than 0.010 ng/mL (< 0.028)
[2021-09-28 03:25] VITALS: BMI 18.7
[2021-09-28 04:13] LABS: #Lymphocytes 0.3 thou/uL (1.20-3.40); #Monocytes 0.1 thou/uL (0.11-0.59); #Neutrophils 8.5 thou/uL (1.40-6.50); %Eosinophils 0.2 % (0.0-10.0); %Lymphocytes 3.1 % (21.0-51.0); %Monocytes 1.1 % (0.0-10.0); %Neutrophils 95.6 % (42.0-75.0); Hemoglobin 10.9 g/dL (12.0-16.0); Mean Corpuscular HGB CONC 30.6 g/dL (32.0-36.0); Mean Corpuscular Hemoglobin 32.6 pg (27.0-31.0); Mean Platelet Volume 8.2 fL (7.4-10.4); Platelet Count 161 thou/uL (130-400); RBC Distribution Width 12.9 % (11.5-14.5); Red Blood Cell (RBC) Count 3.34 mill/uL (4.20-5.40); White Blood Cell (WBC) Count 8.9 thou/uL (4.8-10.8)
[2021-09-28 04:30] LABS: BUN (Urea Nitrogen) 12 mg/dL (9.8-20.1); Calc. Creatinine Clearance 79 mL/min (70-130); Calcium 9.2 mg/dL (7.8-10.44); Estimated GFR 101; Glucose 130 mg/dL (80-115)
[2021-09-28 04:37] LABS: Troponin I Less than 0.010 ng/mL (< 0.028)
[2021-09-28 04:40] LABS: Anion Gap 23 mmol/L (10-20); Carbon Dioxide 39 mmol/L (23-31); Chloride 84 mmol/L (98-107); Potassium 3.5 mmol/L (3.5-5.1); Sodium 142 mmol/L (136-145)
[2021-09-28] MEDS ORDERED: methylPREDNISolone Sod Succ 40 MG VIAL IVP SCH (06:00)
[2021-09-28] MEDS: Enoxaparin Sodium 30 MG/0.3 ML SYRINGE SC SCH (09:12)
[2021-09-28] MEDS: Nicotine 21 MG PATCH TD SCH (15:17)
[2021-09-28] MEDS: Mometasone/Formoterol 200/5 60 PUFF INH SCH (18:38)
[2021-09-28] MEDS: methylPREDNISolone Sod Succ 40 MG VIAL IVP SCH (21:13)
[2021-09-29 03:34] LABS: #Lymphocytes 0.9 thou/uL (1.20-3.40); #Monocytes 0.7 thou/uL (0.11-0.59); #Neutrophils 5.5 thou/uL (1.40-6.50); %Basophils 0.1 % (0.0-1.0); %Eosinophils 0.1 % (0.0-10.0); %Lymphocytes 12.3 % (21.0-51.0); %Monocytes 10.5 % (0.0-10.0); Hemoglobin 10.1 g/dL (12.0-16.0); Mean Corpuscular HGB CONC 31.3 g/dL (32.0-36.0); Mean Corpuscular Hemoglobin 32.3 pg (27.0-31.0); Platelet Count 150 thou/uL (130-400); RBC Distribution Width 13.1 % (11.5-14.5); Red Blood Cell (RBC) Count 3.12 mill/uL (4.20-5.40); White Blood Cell (WBC) Count 7.1 thou/uL (4.8-10.8)
[2021-09-29 03:56] LABS: BUN (Urea Nitrogen) 13 mg/dL (9.8-20.1); Calc. Creatinine Clearance 71 mL/min (70-130); Calcium 8.8 mg/dL (7.8-10.44); Estimated GFR 99; Glucose 99 mg/dL (80-115)
[2021-09-29 04:01] LABS: Carbon Dioxide Greater than 37 mmol/L (23-31); Chloride 86 mmol/L (98-107); Potassium 2.9 mmol/L (3.5-5.1); Sodium 141 mmol/L (136-145)
[2021-09-29] MEDS ORDERED: Electrolyte Replacement Protocol 1 EACH FS SCH (04:15)
[2021-09-29 04:39] LABS: Magnesium 1.8 mg/dL (1.6-2.6)
[2021-09-29] MEDS: Potassium Chloride 20 MEQ TAB PO SCH ×2 (04:53→08:50)
[2021-09-29] MEDS: Mometasone/Formoterol 200/5 60 PUFF INH SCH ×2 (07:05→18:48)
[2021-09-29] MEDS ORDERED: Magnesium 2 GM/50 ML(in water) 2 GM in Premix Bag 1 BAG IVPB SCH (08:00)
[2021-09-29] MEDS: Enoxaparin Sodium 30 MG/0.3 ML SYRINGE SC SCH (08:49)
[2021-09-29] MEDS: methylPREDNISolone Sod Succ 40 MG VIAL IVP SCH ×2 (08:50→20:37)
[2021-09-29 10:29] LABS: BUN (Urea Nitrogen) 14 mg/dL (9.8-20.1); Calc. Creatinine Clearance 68 mL/min (70-130); Calcium 9.1 mg/dL (7.8-10.44); Estimated GFR 98; Glucose 129 mg/dL (80-115)
[2021-09-29 10:39] LABS: Anion Gap 17 mmol/L (10-20); Carbon Dioxide 38 mmol/L (23-31); Chloride 88 mmol/L (98-107); Potassium 3.5 mmol/L (3.5-5.1); Sodium 139 mmol/L (136-145)
[2021-09-29] MEDS: Nicotine 21 MG PATCH TD SCH (16:06)
[2021-09-30] MEDS ORDERED: Acetaminophen 325 MG TAB PO PRN (03:29)
[2021-09-30 06:06] LABS: #Lymphocytes 0.3 thou/uL (1.20-3.40); #Monocytes 0.3 thou/uL (0.11-0.59); #Neutrophils 6.8 thou/uL (1.40-6.50); %Basophils 0.2 % (0.0-1.0); %Eosinophils 0.3 % (0.0-10.0); %Lymphocytes 4.3 % (21.0-51.0); %Monocytes 3.4 % (0.0-10.0); %Neutrophils 91.7 % (42.0-75.0); Hemoglobin 10.7 g/dL (12.0-16.0); Mean Corpuscular HGB CONC 31.5 g/dL (32.0-36.0); Mean Corpuscular Hemoglobin 32.4 pg (27.0-31.0); Platelet Count 155 thou/uL (130-400); Red Blood Cell (RBC) Count 3.29 mill/uL (4.20-5.40); White Blood Cell (WBC) Count 7.4 thou/uL (4.8-10.8)
[2021-09-30 06:24] LABS: Anion Gap 12 mmol/L (10-20); BUN (Urea Nitrogen) 13 mg/dL (9.8-20.1); Calc. Creatinine Clearance 73 mL/min (70-130); Calcium 8.5 mg/dL (7.8-10.44); Carbon Dioxide 33 mmol/L (23-31); Chloride 95 mmol/L (98-107); Estimated GFR 99; Glucose 136 mg/dL (80-115); Magnesium 1.9 mg/dL (1.6-2.6); Sodium 136 mmol/L (136-145)
[2021-09-30] MEDS: Mometasone/Formoterol 200/5 60 PUFF INH SCH ×2 (07:29→18:48)
[2021-09-30] MEDS ORDERED: Magnesium 2 GM/50 ML(in water) 2 GM in Premix Bag 1 BAG IVPB SCH (08:00)
[2021-09-30] MEDS: Enoxaparin Sodium 30 MG/0.3 ML SYRINGE SC SCH (08:57)
[2021-09-30] MEDS: methylPREDNISolone Sod Succ 40 MG VIAL IVP SCH (08:57)
[2021-09-30] MEDS ORDERED: traMADol HCl 50 MG TAB PO PRN (09:11)
[2021-09-30] MEDS: Morphine 4 MG/ML VIAL SLOW IVP PRN ×2 (10:14→21:42)
[2021-09-30] MEDS: Nicotine 21 MG PATCH TD SCH (16:02)
[2021-10-01] MEDS: Mometasone/Formoterol 200/5 60 PUFF INH SCH ×2 (06:27→18:44)
[2021-10-01 06:51] LABS: Anion Gap 7 mmol/L (10-20); BUN (Urea Nitrogen) 14 mg/dL (9.8-20.1); Calc. Creatinine Clearance 78 mL/min (70-130); Calcium 8.7 mg/dL (7.8-10.44); Carbon Dioxide 37 mmol/L (23-31); Chloride 97 mmol/L (98-107); Estimated GFR 101; Glucose 105 mg/dL (80-115); Potassium 3.7 mmol/L (3.5-5.1); Sodium 137 mmol/L (136-145)
[2021-10-01] MEDS ORDERED: Magnesium 2 GM/50 ML(in water) 2 GM in Premix Bag 1 BAG IVPB SCH (08:00)
[2021-10-01] MEDS ORDERED: Prevnar 13-Val Conj/PF 0.5 ML SYRINGE IM ONE (09:00)
[2021-10-01] MEDS: Nicotine 14 MG PATCH TD PRN (09:20)
[2021-10-01] MEDS: pyridOXINE 50 MG (B6) TAB PO SCH (09:20)
[2021-10-01] MEDS: Multivit, Therapeutic 1 TAB PO SCH (09:20)
[2021-10-01] MEDS: Folic Acid 1 MG TAB PO SCH (09:21)
[2021-10-01] MEDS: Enoxaparin Sodium 30 MG/0.3 ML SYRINGE SC SCH (09:21)
[2021-10-01] MEDS: Cyanocobalamin (Vitamin B-12) 1,000 MCG TAB PO SCH (09:21)
[2021-10-01] MEDS: predniSONE 20 MG TAB PO SCH (09:22)
[2021-10-01] MEDS ORDERED: Ergocalciferol 1.25 MG(50,000 UNITS) CAP PO SCH (10:15)
[2021-10-01] MEDS: Morphine 4 MG/ML VIAL SLOW IVP PRN ×2 (12:12→17:04)
[2021-10-01] MEDS: Aripiprazole 10 MG TAB PO SCH (23:04)
[2021-10-01] MEDS: traZODone HCl 50 MG TAB PO SCH (23:05)
[2021-10-02 05:53] LABS: #Eosinphils 0.1 thou/uL (0.0-0.7); #Lymphocytes 0.8 thou/uL (1.20-3.40); #Monocytes 0.5 thou/uL (0.11-0.59); #Neutrophils 8.3 thou/uL (1.40-6.50); %Basophils 0.4 % (0.0-1.0); %Eosinophils 0.8 % (0.0-10.0); %Monocytes 5.5 % (0.0-10.0); %Neutrophils 85.4 % (42.0-75.0); Mean Corpuscular HGB CONC 30.2 g/dL (32.0-36.0); Mean Corpuscular Hemoglobin 31.9 pg (27.0-31.0); Mean Platelet Volume 9.1 fL (7.4-10.4); Platelet Count 126 thou/uL (130-400); RBC Distribution Width 13.4 % (11.5-14.5); Red Blood Cell (RBC) Count 3.77 mill/uL (4.20-5.40); White Blood Cell (WBC) Count 9.7 thou/uL (4.8-10.8)
[2021-10-02 06:08] LABS: Anion Gap 15 mmol/L (10-20); BUN (Urea Nitrogen) 14 mg/dL (9.8-20.1); Calc. Creatinine Clearance 76 mL/min (70-130); Calcium 8.4 mg/dL (7.8-10.44); Carbon Dioxide 26 mmol/L (23-31); Chloride 97 mmol/L (98-107); Estimated GFR 100; Glucose 98 mg/dL (80-115); Potassium 4.6 mmol/L (3.5-5.1); Sodium 133 mmol/L (136-145)
[2021-10-02] MEDS: Mometasone/Formoterol 200/5 60 PUFF INH SCH ×2 (07:23→18:30)
[2021-10-02] MEDS ORDERED: Potassium Chloride 20 MEQ TAB PO SCH (08:00)
[2021-10-02] MEDS: predniSONE 20 MG TAB PO SCH (08:13)
[2021-10-02] MEDS: Potassium Chloride 20 MEQ TAB PO SCH ×2 (08:47→16:18)
[2021-10-02] MEDS: Cyanocobalamin (Vitamin B-12) 1,000 MCG TAB PO SCH (09:00)
[2021-10-02] MEDS: pyridOXINE 50 MG (B6) TAB PO SCH (09:05)
[2021-10-02] MEDS: Multivit, Therapeutic 1 TAB PO SCH (09:05)
[2021-10-02] MEDS: HYDROcodone/Acetaminophen 5/325 mg Tablet PO PRN (09:45)
[2021-10-02] MEDS: Atorvastatin Calcium 40 MG TAB PO SCH (09:48)
[2021-10-02] MEDS: Calcium Carbonate 600 MG + Vit D TAB PO SCH ×2 (09:48→17:05)
[2021-10-02] MEDS: Folic Acid 1 MG TAB PO SCH (09:48)
[2021-10-02] MEDS: Aspirin 81 mg Enteric Coated Tablet PO SCH (09:49)
[2021-10-02] MEDS: Enoxaparin Sodium 30 MG/0.3 ML SYRINGE SC SCH (09:49)
[2021-10-02] MEDS: clonazePAM 1 MG TAB PO SCH (09:49)
[2021-10-02] MEDS: Furosemide 20 MG TAB PO SCH (09:49)
[2021-10-02] MEDS: Morphine 4 MG/ML VIAL SLOW IVP PRN ×2 (11:08→16:16)
[2021-10-02] MEDS: Nicotine 14 MG PATCH TD PRN (12:30)
[2021-10-02] MEDS: Aripiprazole 10 MG TAB PO SCH (22:15)
[2021-10-02] MEDS: traZODone HCl 50 MG TAB PO SCH (22:16)
[2021-10-03] MEDS: HYDROcodone/Acetaminophen 5/325 mg Tablet PO PRN ×5 (05:13→22:54)
[2021-10-03 07:26] LABS: Anion Gap 8 mmol/L (10-20); BUN (Urea Nitrogen) 13 mg/dL (9.8-20.1); Calc. Creatinine Clearance 73 mL/min (70-130); Calcium 8.9 mg/dL (7.8-10.44); Carbon Dioxide 35 mmol/L (23-31); Chloride 96 mmol/L (98-107); Estimated GFR 99; Glucose 107 mg/dL (80-115); Potassium 4.4 mmol/L (3.5-5.1); Sodium 135 mmol/L (136-145)
[2021-10-03] MEDS: Mometasone/Formoterol 200/5 60 PUFF INH SCH ×2 (07:42→18:48)
[2021-10-03] MEDS: Aspirin 81 mg Enteric Coated Tablet PO SCH (09:10)
[2021-10-03] MEDS: predniSONE 20 MG TAB PO SCH (09:10)
[2021-10-03] MEDS: Atorvastatin Calcium 40 MG TAB PO SCH (09:10)
[2021-10-03] MEDS: Calcium Carbonate 600 MG + Vit D TAB PO SCH ×2 (09:10→18:20)
[2021-10-03] MEDS: Folic Acid 1 MG TAB PO SCH (09:10)
[2021-10-03] MEDS: clonazePAM 1 MG TAB PO SCH (09:10)
[2021-10-03] MEDS: pyridOXINE 50 MG (B6) TAB PO SCH (09:11)
[2021-10-03] MEDS: Furosemide 20 MG TAB PO SCH (09:11)
[2021-10-03] MEDS: Cyanocobalamin (Vitamin B-12) 1,000 MCG TAB PO SCH (09:11)
[2021-10-03] MEDS: Multivit, Therapeutic 1 TAB PO SCH (09:11)
[2021-10-03] MEDS: Enoxaparin Sodium 30 MG/0.3 ML SYRINGE SC SCH (09:11)
[2021-10-03] MEDS: Aripiprazole 10 MG TAB PO SCH (22:52)
[2021-10-03] MEDS: traZODone HCl 50 MG TAB PO SCH (22:52)
[2021-10-04] MEDS: Mometasone/Formoterol 200/5 60 PUFF INH SCH ×2 (06:35→19:17)
[2021-10-04 06:42] LABS: BUN (Urea Nitrogen) 12 mg/dL (9.8-20.1); Calc. Creatinine Clearance 78 mL/min (70-130); Calcium 9.1 mg/dL (7.8-10.44); Estimated GFR 101; Glucose 116 mg/dL (80-115)
[2021-10-04 06:52] LABS: Anion Gap 14 mmol/L (10-20); Carbon Dioxide 33 mmol/L (23-31); Chloride 96 mmol/L (98-107); Sodium 139 mmol/L (136-145)
[2021-10-04] MEDS: HYDROcodone/Acetaminophen 5/325 mg Tablet PO PRN (09:03)
[2021-10-04] MEDS: clonazePAM 1 MG TAB PO SCH (09:04)
[2021-10-04] MEDS: Enoxaparin Sodium 30 MG/0.3 ML SYRINGE SC SCH (09:05)
[2021-10-04] MEDS: pyridOXINE 50 MG (B6) TAB PO SCH (09:05)
[2021-10-04] MEDS: Aspirin 81 mg Enteric Coated Tablet PO SCH (09:05)
[2021-10-04] MEDS: Calcium Carbonate 600 MG + Vit D TAB PO SCH ×2 (09:05→17:47)
[2021-10-04] MEDS: Atorvastatin Calcium 40 MG TAB PO SCH (09:05)
[2021-10-04] MEDS: Multivit, Therapeutic 1 TAB PO SCH (09:05)
[2021-10-04] MEDS: Cyanocobalamin (Vitamin B-12) 1,000 MCG TAB PO SCH (09:06)
[2021-10-04] MEDS: Folic Acid 1 MG TAB PO SCH (09:07)
[2021-10-04] MEDS: predniSONE 20 MG TAB PO SCH (09:07)
[2021-10-04] MEDS: Furosemide 20 MG TAB PO SCH (09:08)
[2021-10-04] MEDS: Morphine 4 MG/ML VIAL SLOW IVP PRN (18:48)
[2021-10-04] MEDS: traZODone HCl 50 MG TAB PO SCH (20:40)
[2021-10-04] MEDS: Aripiprazole 10 MG TAB PO SCH (20:42)
[2021-10-05] MEDS: Morphine 4 MG/ML VIAL SLOW IVP PRN ×2 (00:49→09:07)
[2021-10-05] MEDS: Mometasone/Formoterol 200/5 60 PUFF INH SCH ×2 (07:16→19:20)
[2021-10-05] MEDS ORDERED: predniSONE 20 MG TAB PO SCH (08:00)
[2021-10-05] MEDS: Enoxaparin Sodium 30 MG/0.3 ML SYRINGE SC SCH (09:08)
[2021-10-05] MEDS: Atorvastatin Calcium 40 MG TAB PO SCH (09:09)
[2021-10-05] MEDS: Cyanocobalamin (Vitamin B-12) 1,000 MCG TAB PO SCH (09:10)
[2021-10-05] MEDS: Furosemide 20 MG TAB PO SCH (09:10)
[2021-10-05] MEDS: Multivit, Therapeutic 1 TAB PO SCH (09:10)
[2021-10-05] MEDS: Folic Acid 1 MG TAB PO SCH (09:10)
[2021-10-05] MEDS: pyridOXINE 50 MG (B6) TAB PO SCH (09:11)
[2021-10-05] MEDS: Aspirin 81 mg Enteric Coated Tablet PO SCH (09:11)
[2021-10-05] MEDS: clonazePAM 1 MG TAB PO SCH (09:11)
[2021-10-05] MEDS: Calcium Carbonate 600 MG + Vit D TAB PO SCH ×2 (09:11→16:33)
[2021-10-05] MEDS: HYDROcodone/Acetaminophen 5/325 mg Tablet PO PRN ×2 (16:33→21:03)
[2021-10-05] MEDS: Aripiprazole 10 MG TAB PO SCH (21:01)
[2021-10-05] MEDS: traZODone HCl 50 MG TAB PO SCH (21:02)
[2021-10-06] MEDS: HYDROcodone/Acetaminophen 5/325 mg Tablet PO PRN ×2 (02:22→06:37)
[2021-10-06] MEDS: Mometasone/Formoterol 200/5 60 PUFF INH SCH (06:56)
[2021-10-06 08:04] VITALS: BP 108/65; TEMP 98.1
[2021-10-06] MEDS: Enoxaparin Sodium 30 MG/0.3 ML SYRINGE SC SCH (08:11)
[2021-10-08] MEDS ORDERED: Ergocalciferol 1.25 MG(50,000 UNITS) CAP PO SCH (09:00)
== END 2021-10-06 12:37 | disposition home health service (06) | DRG 189 ==
LOC: ERS 21:40 → IMCU/EMU 09-28 01:03 → T4-B 09-29 13:12
PROVIDERS: ADMIT Internal Medicine; ATTEND Family Medicine
PROC: 5A09457 Assistance with Respiratory Ventilation, 24-96 Consecutive Hours, Continuous Positive Airway Pressure (ICD-10-PCS; principal; 2021-09-28)
DX: J96.21 Acute and chronic respiratory failure with hypoxia (principal); S32.409A Unspecified fracture of unspecified acetabulum, initial encounter for closed fracture; S32.82XA Multiple fractures of pelvis without disruption of pelvic ring, initial encounter for closed fracture; S22.089A Unspecified fracture of T11-T12 vertebra, initial encounter for closed fracture; J44.1 Chronic obstructive pulmonary disease with (acute) exacerbation; I50.32 Chronic diastolic (congestive) heart failure; E87.3 Alkalosis; E87.0 Hyperosmolality and hypernatremia; Z66 Do not resuscitate; Z23 Encounter for immunization; Z20.822 Contact with and (suspected) exposure to COVID-19; J96.22 Acute and chronic respiratory failure with hypercapnia; I11.0 Hypertensive heart disease with heart failure; F17.210 Nicotine dependence, cigarettes, uncomplicated; F41.9 Anxiety disorder, unspecified; D64.9 Anemia, unspecified; E55.9 Vitamin D deficiency, unspecified; E87.6 Hypokalemia; E83.42 Hypomagnesemia; W19.XXXA Unspecified fall, initial encounter; Z88.0 Allergy status to penicillin; Z79.82 Long term (current) use of aspirin; Z79.51 Long term (current) use of inhaled steroids; Z79.899 Other long term (current) drug therapy; Z79.52 Long term (current) use of systemic steroids; T38.0X5A Adverse effect of glucocorticoids and synthetic analogues, initial encounter; M81.0 Age-related osteoporosis without current pathological fracture; Z99.81 Dependence on supplemental oxygen; Z79.2 Long term (current) use of antibiotics
CPT/HCPCS: 36415; 71045; 72100; 72170; 78306; 80048; 80053; 82306; 82805; 83690; 83735; 83880; 84484; 85025; 85379; 90471; 90670; 93005; 94640; 94660; 96365; 96375; A9503; G0009; J1650; J1956; J2270; J2920; J2930; J3475; J7512; J7620; U0002; U0003; U0005

== ENCOUNTER 2021-12-23 08:48 | Emergency (ER) | payer MEDICARE, SELFPAY ==
[2021-12-23] MEDS ORDERED: Furosemide 40 MG/4 ML VIAL ONE (10:09)
[2021-12-23] MEDS ORDERED: methylPREDNISolone Sod Succ 40 MG VIAL ONE (10:09)
[2021-12-23] MEDS ORDERED: Ketorolac Tromethamine 30 MG/ML VIAL ONE (10:09)
[2021-12-23 10:10] LABS: Hemoglobin 11.1 g/dL (12.0-16.0); Mean Corpuscular HGB CONC 31.3 g/dL (32.0-36.0); Mean Corpuscular Hemoglobin 31.2 pg (27.0-31.0); Mean Corpuscular Volume 99.9 fl (78.0-98.0); Mean Platelet Volume 6.8 fL (7.4-10.4); Platelet Count 285 10x3/uL (130-400); Red Blood Cell (RBC) Count 3.56 mill/uL (4.20-5.40); White Blood Cell (WBC) Count 19.1 10x3/uL (4.8-10.8)
[2021-12-23] MEDS ORDERED: Morphine 4 MG/ML VIAL ONE ×2 (10:27→11:39)
[2021-12-23 10:35] LABS: ALT (SGPT) 29 U/L (8-55); AST (SGOT) 13 U/L (5-34); Albumin 3.9 g/dL (3.4-4.8); Alkaline Phosphatase 75 U/L (40-110); Anion Gap 7 mmol/L (10-20); BUN (Urea Nitrogen) 19 mg/dL (9.8-20.1); Bilirubin, Total 0.5 mg/dL (0.2-1.2); Calc. Creatinine Clearance 0 mL/min (70-130); Calcium 9.2 mg/dL (7.8-10.44); Carbon Dioxide 36 mmol/L (23-31); Chloride 93 mmol/L (98-107); Estimated GFR 99; Glucose 91 mg/dL (80-115); Potassium 4.4 mmol/L (3.5-5.1); Protein, Total 5.9 g/dL (5.8-8.1); Sodium 132 mmol/L (136-145)
[2021-12-23 11:15] LABS: Band 23 % (5-11); Lymphocytes 5 % (21-51); MDiff Complete? YES; Metamyelocyte 2 % (0-0); Monocytes 5 % (0-10); Neutrophil 65 % (42-75); Platelet Morphology Comment Appears Adequate; RBC Morphology Normal
== END 2021-12-23 12:49 | disposition home or self-care (01) ==
LOC: ERS 08:48
DX: J44.1 Chronic obstructive pulmonary disease with (acute) exacerbation (principal); I10 Essential (primary) hypertension; E78.00 Pure hypercholesterolemia, unspecified; Z87.891 Personal history of nicotine dependence; Z79.899 Other long term (current) drug therapy; Z79.82 Long term (current) use of aspirin
CPT/HCPCS: 36415; 71045; 80053; 83880; 84484; 85025; 93005; 94640; 96374; 96375; 96376; J1885; J1940; J2270; J2920; J7620

== ENCOUNTER 2022-01-10 22:07 | Emergency (ER) | payer SELFPAY ==
[2022-01-11 00:12] LABS: #Eosinphils 0.1 thou/uL (0.0-0.7); #Lymphocytes 0.7 thou/uL (1.20-3.40); #Monocytes 0.7 thou/uL (0.11-0.59); #Neutrophils 6.8 thou/uL (1.40-6.50); %Basophils 0.2 % (0.0-1.0); %Eosinophils 1.3 % (0.0-10.0); %Lymphocytes 8.7 % (21.0-51.0); %Neutrophils 81.8 % (42.0-75.0); Hemoglobin 11.3 g/dL (12.0-16.0); Mean Corpuscular HGB CONC 32.3 g/dL (32.0-36.0); Mean Corpuscular Hemoglobin 31.2 pg (27.0-31.0); Mean Corpuscular Volume 96.6 fl (78.0-98.0); Mean Platelet Volume 7.2 fL (7.4-10.4); Platelet Count 426 10x3/uL (130-400); RBC Distribution Width 14.3 % (11.5-14.5); Red Blood Cell (RBC) Count 3.62 mill/uL (4.20-5.40); White Blood Cell (WBC) Count 8.3 10x3/uL (4.8-10.8)
[2022-01-11 00:33] LABS: ALT (SGPT) 29 U/L (8-55); AST (SGOT) 14 U/L (5-34); Albumin 3.8 g/dL (3.4-4.8); Alkaline Phosphatase 159 U/L (40-110); Anion Gap 15 mmol/L (10-20); BUN (Urea Nitrogen) 15 mg/dL (9.8-20.1); Bilirubin, Total 0.4 mg/dL (0.2-1.2); Calc. Creatinine Clearance 0 mL/min (70-130); Calcium 9.5 mg/dL (7.8-10.44); Carbon Dioxide 31 mmol/L (23-31); Chloride 98 mmol/L (98-107); Estimated GFR 90; Glucose 122 mg/dL (80-115); Potassium 3.6 mmol/L (3.5-5.1); Protein, Total 6.8 g/dL (5.8-8.1); Sodium 140 mmol/L (136-145)
[2022-01-11 01:02] LABS: Actual Bicarbonate (HCO3a) 29.8 mEq/L (22-28); Analyzer IN Cardio ER; Base Excess (BEa) 5.1 mEq/L (-2.0 to +3.0); CO2 Tension 44.5 mmHg (35.0-45.0); Calcium, Ionized (arterial) 1.13 mmol/L (1.12-1.30); Carboxyhemoglobin (COHb) 0.3 gm% (0.0-3.0); Hemoglobin (Hb) 11.7 g/dL (12.0-16.0); Potassium - ABG Lab 3.41 mmol/L (3.70-5.30); pH, Arterial 7.44 (7.35-7.45)
[2022-01-11 01:17] LABS: SARS-CoV-2 NAA Rapid Test Not Detected (NotDetected)
[2022-01-11 01:33] LABS: O2 Tension (PaO2), arterial 57.2 mmHg (> 80.0)
[2022-01-11 01:34] LABS: Puncture Site RBA
[2022-01-11] MEDS ORDERED: Iopamidol-370 76% 500 ML 1 ML ONE (15:50)
== END 2022-01-11 04:41 | disposition left against medical advice (07) ==
LOC: ERS 22:07
DX: R10.30 Lower abdominal pain, unspecified (principal); Z20.822 Contact with and (suspected) exposure to COVID-19; J44.9 Chronic obstructive pulmonary disease, unspecified; I10 Essential (primary) hypertension; E78.00 Pure hypercholesterolemia, unspecified; Z87.891 Personal history of nicotine dependence; Z79.899 Other long term (current) drug therapy; Z79.82 Long term (current) use of aspirin
CPT/HCPCS: 36415; 36600; 71045; 74177; 80053; 82805; 85025; 93005; J7620; Q9967

== ENCOUNTER 2022-01-18 07:55 | Inpatient (IN) | payer MEDICARE ==
[2022-01-18 08:28] LABS: #Eosinphils 0.1 thou/uL (0.0-0.7); #Lymphocytes 1.5 thou/uL (1.20-3.40); #Neutrophils 10.2 thou/uL (1.40-6.50); %Basophils 0.4 % (0.0-1.0); %Eosinophils 0.7 % (0.0-10.0); %Lymphocytes 11.3 % (21.0-51.0); %Monocytes 7.9 % (0.0-10.0); %Neutrophils 79.7 % (42.0-75.0); Hemoglobin 11.1 g/dL (12.0-16.0); Mean Corpuscular HGB CONC 31.3 g/dL (32.0-36.0); Mean Corpuscular Hemoglobin 30.2 pg (27.0-31.0); Mean Corpuscular Volume 96.7 fl (78.0-98.0); Mean Platelet Volume 6.8 fL (7.4-10.4); Platelet Count 503 10x3/uL (130-400); RBC Distribution Width 14.2 % (11.5-14.5); Red Blood Cell (RBC) Count 3.66 mill/uL (4.20-5.40); White Blood Cell (WBC) Count 12.8 10x3/uL (4.8-10.8)
[2022-01-18 08:50] LABS: ALT (SGPT) 22 U/L (8-55); AST (SGOT) 14 U/L (5-34); Albumin 3.8 g/dL (3.4-4.8); Alkaline Phosphatase 142 U/L (40-110); Anion Gap 15 mmol/L (10-20); BUN (Urea Nitrogen) 13 mg/dL (9.8-20.1); Bilirubin, Total 0.4 mg/dL (0.2-1.2); Calc. Creatinine Clearance 0 mL/min (70-130); Calcium 8.9 mg/dL (7.8-10.44); Carbon Dioxide 28 mmol/L (23-31); Chloride 99 mmol/L (98-107); Estimated GFR 87; Globulin 2.1 g/dL (2.4-3.5); Glucose 103 mg/dL (80-115); Potassium 3.5 mmol/L (3.5-5.1); Protein, Total 5.9 g/dL (5.8-8.1); Sodium 138 mmol/L (136-145)
[2022-01-18] MEDS ORDERED: methylPREDNISolone Sod Succ 40 MG VIAL ONE (09:02)
[2022-01-18] MEDS ORDERED: cefTRIAXone\\ROCEPHIN 2 GM VIAL ONE (09:50)
[2022-01-18] MEDS ORDERED: Azithromycin 500 MG VIAL ONE (10:48)
[2022-01-18] MEDS ORDERED: Iopamidol-370 76% 500 ML 1 ML ONE (11:16)
[2022-01-18] MEDS ORDERED: Magnesium 2 GM/50 ML BAG (IN WATER) ONE (11:56)
[2022-01-18 13:06] LABS: SARS-CoV-2 NAA Rapid Test Not Detected (NotDetected)
[2022-01-18] MEDS ORDERED: Senokot S 8.6-50 MG TAB PO PRN (13:30)
[2022-01-18] MEDS ORDERED: Ondansetron ODT 4 MG TAB PO PRN (13:30)
[2022-01-18] MEDS ORDERED: Acetaminophen 325 MG TAB PO PRN (13:30)
[2022-01-18 19:16] VITALS: BMI 22.4
[2022-01-18] MEDS: Famotidine 20 MG TAB PO SCH (21:03)
[2022-01-18] MEDS: Doxycycline 100 MG CAP PO SCH (21:03)
[2022-01-18] MEDS: Metoprolol Tartrate 25 MG TAB PO SCH (21:03)
[2022-01-18] MEDS: methylPREDNISolone Sod Succ 40 MG VIAL IVP SCH (21:09)
[2022-01-18] MEDS: Polyethylene Glycol 3350 17 GM Packet PO SCH (21:10)
[2022-01-19 07:34] LABS: #Eosinphils 0.1 thou/uL (0.0-0.7); #Lymphocytes 0.8 thou/uL (1.20-3.40); #Monocytes 0.6 thou/uL (0.11-0.59); #Neutrophils 10.1 thou/uL (1.40-6.50); %Basophils 0.2 % (0.0-1.0); %Lymphocytes 7.1 % (21.0-51.0); %Monocytes 5.1 % (0.0-10.0); %Neutrophils 86.5 % (42.0-75.0); Hemoglobin 9.3 g/dL (12.0-16.0); Mean Corpuscular HGB CONC 31.1 g/dL (32.0-36.0); Mean Corpuscular Hemoglobin 30.1 pg (27.0-31.0); Mean Corpuscular Volume 96.8 fl (78.0-98.0); Mean Platelet Volume 6.7 fL (7.4-10.4); Platelet Count 398 10x3/uL (130-400); White Blood Cell (WBC) Count 11.7 10x3/uL (4.8-10.8)
[2022-01-19 07:47] LABS: Anion Gap 12 mmol/L (10-20); BUN (Urea Nitrogen) 10 mg/dL (9.8-20.1); Calc. Creatinine Clearance 89 mL/min (70-130); Calcium 8.7 mg/dL (7.8-10.44); Carbon Dioxide 27 mmol/L (23-31); Chloride 102 mmol/L (98-107); Estimated GFR 99; Glucose 125 mg/dL (80-115); Potassium 3.5 mmol/L (3.5-5.1); Sodium 137 mmol/L (136-145)
[2022-01-19] MEDS: Polyethylene Glycol 3350 17 GM Packet PO SCH ×2 (09:05→20:11)
[2022-01-19] MEDS: Senokot S 8.6-50 MG TAB PO SCH ×2 (09:05→20:11)
[2022-01-19] MEDS: Amlodipine 10 MG TAB PO SCH (09:05)
[2022-01-19] MEDS: Famotidine 20 MG TAB PO SCH (09:06)
[2022-01-19] MEDS: PARoxetine 20 MG TAB PO SCH (09:06)
[2022-01-19] MEDS: Doxycycline 100 MG CAP PO SCH ×2 (09:06→20:11)
[2022-01-19] MEDS: Atorvastatin Calcium 40 MG TAB PO SCH (09:06)
[2022-01-19] MEDS: Enoxaparin Sodium 40 MG/0.4 ML SYRINGE SC SCH (09:06)
[2022-01-19] MEDS: Metoprolol Tartrate 25 MG TAB PO SCH ×2 (09:06→20:11)
[2022-01-19] MEDS: Aspirin 81 mg Enteric Coated Tablet PO SCH (09:06)
[2022-01-19] MEDS: cefTRIAXone\\ROCEPHIN 1 GM in Sodium Chloride 0.9% 100 ML IVPB SCH (09:07)
[2022-01-19] MEDS: methylPREDNISolone Sod Succ 40 MG VIAL IVP SCH (09:58)
[2022-01-19] MEDS: Calcium Carbonate 600 MG + Vit D TAB PO SCH (16:46)
[2022-01-19] MEDS ORDERED: Calcium Carbonate 500 MG ChewTAB PO PRN (16:47)
[2022-01-19] MEDS ORDERED: Morphine 4 MG/ML VIAL SLOW IVP PRN (16:56)
[2022-01-19] MEDS: traMADol HCl 50 MG TAB PO PRN (17:33)
[2022-01-19] MEDS: Mometasone 100 MCG/Formoterol 5 MCG 120 PUFF INHALER INH SCH (19:12)
[2022-01-19] MEDS ORDERED: Aripiprazole 10 MG TAB PO SCH (21:00)
[2022-01-20 05:59] LABS: Troponin I Less than 0.010 ng/mL (< 0.028)
[2022-01-20] MEDS: Mometasone 100 MCG/Formoterol 5 MCG 120 PUFF INHALER INH SCH (07:25)
[2022-01-20] MEDS: Aspirin 81 mg Enteric Coated Tablet PO SCH (07:57)
[2022-01-20] MEDS: Senokot S 8.6-50 MG TAB PO SCH (07:57)
[2022-01-20] MEDS: Calcium Carbonate 600 MG + Vit D TAB PO SCH (07:57)
[2022-01-20] MEDS: PARoxetine 20 MG TAB PO SCH (07:57)
[2022-01-20] MEDS: Metoprolol Tartrate 25 MG TAB PO SCH (07:58)
[2022-01-20] MEDS: Enoxaparin Sodium 40 MG/0.4 ML SYRINGE SC SCH (07:58)
[2022-01-20] MEDS: Atorvastatin Calcium 40 MG TAB PO SCH (07:59)
[2022-01-20] MEDS: Doxycycline 100 MG CAP PO SCH (07:59)
[2022-01-20] MEDS: Amlodipine 10 MG TAB PO SCH (07:59)
[2022-01-20] MEDS ORDERED: predniSONE 5 MG TAB PO SCH (08:00)
[2022-01-20] MEDS: Polyethylene Glycol 3350 17 GM Packet PO SCH (08:02)
[2022-01-20 08:31] VITALS: BP 118/72; TEMP 98.2
[2022-01-20] MEDS ORDERED: clonazePAM 1 MG TAB PO SCH (09:00)
[2022-01-20] MEDS: cefTRIAXone\\ROCEPHIN 1 GM in Sodium Chloride 0.9% 100 ML IVPB SCH (09:41)
[2022-01-20] MEDS: traMADol HCl 50 MG TAB PO PRN (10:52)
[2022-01-25] MEDS ORDERED: Alendronate Sodium 70 mg Tablet PO SCH (06:00)
== END 2022-01-20 14:20 | disposition home or self-care (01) | DRG 189 ==
LOC: ERS 07:55 → T4-B 18:28
PROVIDERS: ADMIT Student in an Organized Health Care Education/Training Program; ATTEND Internal Medicine
DX: J96.21 Acute and chronic respiratory failure with hypoxia (principal); J44.1 Chronic obstructive pulmonary disease with (acute) exacerbation; I50.32 Chronic diastolic (congestive) heart failure; J96.22 Acute and chronic respiratory failure with hypercapnia; Z20.822 Contact with and (suspected) exposure to COVID-19; I11.0 Hypertensive heart disease with heart failure; K59.00 Constipation, unspecified; E78.00 Pure hypercholesterolemia, unspecified; Z79.82 Long term (current) use of aspirin; Z79.899 Other long term (current) drug therapy; Z79.52 Long term (current) use of systemic steroids; Z88.0 Allergy status to penicillin; Z87.891 Personal history of nicotine dependence
CPT/HCPCS: 36415; 71045; 71275; 74177; 80048; 80053; 83605; 83880; 84484; 85025; 87040; 93005; 94640; 96365; 96375; J0456; J0696; J1650; J2270; J2920; J3475; J3490; J7512; J7620; Q9967

== ENCOUNTER 2022-04-08 09:56 | Inpatient (IN) | payer MEDICARE, SELFPAY ==
[2022-04-08] MEDS ORDERED: Albuterol 2.5 MG/0.5 ML NEB ONE (10:12)
[2022-04-08] MEDS ORDERED: Ipratropium/Albuterol 3 ML NEB ONE ×3 (10:12→19:22)
[2022-04-08] MEDS ORDERED: Dexamethasone 10 MG/ML VIAL ONE (10:14)
[2022-04-08] MEDS ORDERED: Magnesium 2 GM/50 ML BAG (IN WATER) ONE ×2 (10:14→15:48)
[2022-04-08] MEDS ORDERED: Magnesium 2 GM/50 ML(in water) 2 GM in Premix Bag 1 BAG IVPB SCH (10:15)
[2022-04-08] MEDS ORDERED: cefTRIAXone\\ROCEPHIN 1 GM VIAL ONE ×2 (10:20)
[2022-04-08 10:23] LABS: Analyzer IN Cardio ER; Base Excess 14.3 mEq/L (-2.0 to +3.0); Calcium, Ionized (venous) 1.06 mmol/L (1.16-1.32); Chloride (VBG) 90 mmol/L (98-106); Hemoglobin (Hb) 12.9 g/dL (11.7-16.0); Sodium 136.5 mmol/L (133-146); pH (venous) 7.42 (7.32-7.43)
[2022-04-08 10:25] LABS: Actual Bicarbonate (HCO3v) 42 mEq/L (22-28)
[2022-04-08 10:34] LABS: #Eosinphils 0.1 thou/uL (0.0-0.7); #Monocytes 0.9 thou/uL (0.11-0.59); #Neutrophils 8.6 thou/uL (1.40-6.50); %Basophils 0.2 % (0.0-1.0); %Eosinophils 0.5 % (0.0-10.0); %Lymphocytes 9.4 % (21.0-51.0); %Monocytes 8.5 % (0.0-10.0); %Neutrophils 81.3 % (42.0-75.0); Hemoglobin 11.8 g/dL (12.0-16.0); Mean Corpuscular HGB CONC 30.9 g/dL (32.0-36.0); Mean Corpuscular Hemoglobin 30.3 pg (27.0-31.0); Mean Corpuscular Volume 98.1 fl (78.0-98.0); Mean Platelet Volume 7.3 fL (7.4-10.4); Platelet Count 266 10x3/uL (130-400); RBC Distribution Width 13.7 % (11.5-14.5); Red Blood Cell (RBC) Count 3.88 mill/uL (4.20-5.40); White Blood Cell (WBC) Count 10.5 10x3/uL (4.8-10.8)
[2022-04-08 10:44] LABS: INR-International Normal Ratio 0.9; PTT 24.4 sec (22.9-36.1); Prothrombin Time 12.2 sec (12.0-14.7)
[2022-04-08 10:48] LABS: ALT (SGPT) 16 U/L (8-55); AST (SGOT) 13 U/L (5-34); Albumin 4.3 g/dL (3.4-4.8); Alkaline Phosphatase 102 U/L (40-110); BUN (Urea Nitrogen) 14 mg/dL (9.8-20.1); Bilirubin, Total 0.5 mg/dL (0.2-1.2); Calc. Creatinine Clearance 0 mL/min (70-130); Calcium 9.2 mg/dL (7.8-10.44); Estimated GFR 99; Globulin 1.9 g/dL (2.4-3.5); Glucose 114 mg/dL (80-115); Lipase 12 U/L (8-78); Protein, Total 6.2 g/dL (5.8-8.1)
[2022-04-08 10:57] LABS: Anion Gap 15 mmol/L (10-20); Carbon Dioxide 38 mmol/L (23-31); Chloride 91 mmol/L (98-107); Potassium 3.7 mmol/L (3.5-5.1); Sodium 140 mmol/L (136-145)
[2022-04-08] MEDS ORDERED: Acetaminophen 325 MG TAB PO PRN (12:19)
[2022-04-08] MEDS ORDERED: Ondansetron PF 4 MG/2 ML Vial IVP PRN (12:19)
[2022-04-08] MEDS ORDERED: Ipratropium/Albuterol 3 ML NEB NEB PRN (12:19)
[2022-04-08 17:01] LABS: SARS-CoV-2 NAA Rapid Test Not Detected (NotDetected)
[2022-04-08] MEDS: Ipratropium/Albuterol 3 ML NEB NEB SCH ×2 (19:22→19:29)
[2022-04-08] MEDS: Mometasone/Formoterol 200/5 60 PUFF INH SCH (19:30)
[2022-04-08 21:22] VITALS: BMI 22.4
[2022-04-08] MEDS: Famotidine 20 MG TAB PO SCH (21:35)
[2022-04-08] MEDS: methylPREDNISolone Sod Succ 40 MG VIAL IVP SCH ×2 (22:25→22:29)
[2022-04-08] MEDS: traMADol HCl 50 MG TAB PO PRN (22:29)
[2022-04-09] MEDS: Ipratropium/Albuterol 3 ML NEB NEB SCH ×4 (01:28→18:55)
[2022-04-09 05:01] LABS: #Lymphocytes 0.5 thou/uL (1.20-3.40); #Monocytes 0.2 thou/uL (0.11-0.59); #Neutrophils 6.3 thou/uL (1.40-6.50); %Eosinophils 0.3 % (0.0-10.0); %Lymphocytes 6.4 % (21.0-51.0); %Monocytes 2.7 % (0.0-10.0); %Neutrophils 90.6 % (42.0-75.0); Hemoglobin 9.9 g/dL (12.0-16.0); Mean Corpuscular HGB CONC 31.5 g/dL (32.0-36.0); Mean Corpuscular Volume 98.4 fl (78.0-98.0); Mean Platelet Volume 7.7 fL (7.4-10.4); Platelet Count 207 10x3/uL (130-400); RBC Distribution Width 13.7 % (11.5-14.5)
[2022-04-09 05:19] LABS: ALT (SGPT) 11 U/L (8-55); AST (SGOT) 10 U/L (5-34); Albumin 3.6 g/dL (3.4-4.8); Alkaline Phosphatase 78 U/L (40-110); Anion Gap 11 mmol/L (10-20); BUN (Urea Nitrogen) 19 mg/dL (9.8-20.1); Bilirubin, Direct 0.1 mg/dL (0.1-0.3); Bilirubin, Total 0.2 mg/dL (0.2-1.2); Calc. Creatinine Clearance 86 mL/min (70-130); Calcium 8.5 mg/dL (7.8-10.44); Carbon Dioxide 36 mmol/L (23-31); Chloride 95 mmol/L (98-107); Estimated GFR 99; Glucose 153 mg/dL (80-115); Magnesium 2.3 mg/dL (1.6-2.6); Potassium 3.4 mmol/L (3.5-5.1); Protein, Total 5.4 g/dL (5.8-8.1); Sodium 139 mmol/L (136-145)
[2022-04-09] MEDS: methylPREDNISolone Sod Succ 40 MG VIAL IVP SCH ×4 (05:19→23:23)
[2022-04-09] MEDS: traMADol HCl 50 MG TAB PO PRN ×4 (06:39→23:23)
[2022-04-09] MEDS: Mometasone/Formoterol 200/5 60 PUFF INH SCH ×2 (07:21→19:22)
[2022-04-09] MEDS: Famotidine 20 MG TAB PO SCH ×2 (08:43→21:24)
[2022-04-09] MEDS ORDERED: Potassium Chloride 20 MEQ TAB PO SCH (09:45)
[2022-04-09] MEDS ORDERED: Electrolyte Replacement Protocol 1 EACH FS SCH (09:45)
[2022-04-09] MEDS: Amlodipine 10 MG TAB PO SCH (12:28)
[2022-04-09] MEDS: Aripiprazole 10 MG TAB PO SCH (12:29)
[2022-04-09] MEDS: Aspirin 81 mg Enteric Coated Tablet PO SCH (12:29)
[2022-04-09] MEDS: clonazePAM 1 MG TAB PO SCH (12:30)
[2022-04-09] MEDS ORDERED: Non-Formulary Item 1 EACH (Zolpidem Tartrate [Ambien] 10 MG Tablet) PO SCH (21:00)
[2022-04-09] MEDS: Zolpidem Tartrate 5 MG TAB PO SCH (21:24)
[2022-04-09] MEDS: PARoxetine 20 MG TAB PO SCH (21:25)
[2022-04-09] MEDS: guaiFENesin ER 600 MG TAB PO SCH (21:25)
[2022-04-09] MEDS: Atorvastatin Calcium 40 MG TAB PO SCH (21:25)
[2022-04-10] MEDS: Ipratropium/Albuterol 3 ML NEB NEB SCH ×4 (01:27→18:34)
[2022-04-10 04:49] LABS: #Lymphocytes 0.4 thou/uL (1.20-3.40); #Monocytes 0.4 thou/uL (0.11-0.59); #Neutrophils 11.2 thou/uL (1.40-6.50); %Eosinophils 0.3 % (0.0-10.0); %Lymphocytes 3.4 % (21.0-51.0); %Monocytes 3.1 % (0.0-10.0); %Neutrophils 93.1 % (42.0-75.0); Hemoglobin 9.6 g/dL (12.0-16.0); Mean Corpuscular HGB CONC 31.4 g/dL (32.0-36.0); Mean Corpuscular Hemoglobin 31.2 pg (27.0-31.0); Mean Corpuscular Volume 99.3 fl (78.0-98.0); Mean Platelet Volume 7.5 fL (7.4-10.4); Platelet Count 222 10x3/uL (130-400); RBC Distribution Width 13.8 % (11.5-14.5); Red Blood Cell (RBC) Count 3.07 mill/uL (4.20-5.40); White Blood Cell (WBC) Count 12.1 10x3/uL (4.8-10.8)
[2022-04-10 05:08] LABS: Anion Gap 10 mmol/L (10-20); BUN (Urea Nitrogen) 19 mg/dL (9.8-20.1); Calc. Creatinine Clearance 83 mL/min (70-130); Calcium 8.8 mg/dL (7.8-10.44); Carbon Dioxide 36 mmol/L (23-31); Chloride 95 mmol/L (98-107); Estimated GFR 98; Glucose 225 mg/dL (80-115); Potassium 3.9 mmol/L (3.5-5.1); Sodium 137 mmol/L (136-145)
[2022-04-10] MEDS: methylPREDNISolone Sod Succ 40 MG VIAL IVP SCH ×4 (05:55→23:34)
[2022-04-10] MEDS: Mometasone/Formoterol 200/5 60 PUFF INH SCH ×2 (06:59→18:40)
[2022-04-10] MEDS ORDERED: Magnesium 2 GM/50 ML(in water) 2 GM in Premix Bag 1 BAG IVPB SCH (08:00)
[2022-04-10] MEDS ORDERED: Aspirin 81 mg Enteric Coated Tablet PO SCH (09:00)
[2022-04-10] MEDS ORDERED: Aripiprazole 10 MG TAB PO SCH (09:00)
[2022-04-10] MEDS ORDERED: Amlodipine 10 MG TAB PO SCH (09:00)
[2022-04-10] MEDS ORDERED: clonazePAM 1 MG TAB PO SCH (09:00)
[2022-04-10] MEDS: clonazePAM 1 MG TAB PO SCH (09:21)
[2022-04-10] MEDS: Amlodipine 10 MG TAB PO SCH (09:21)
[2022-04-10] MEDS: Famotidine 20 MG TAB PO SCH ×2 (09:21→20:30)
[2022-04-10] MEDS: Aripiprazole 10 MG TAB PO SCH (09:22)
[2022-04-10] MEDS: Furosemide 20 MG TAB PO SCH (09:23)
[2022-04-10] MEDS: guaiFENesin ER 600 MG TAB PO SCH ×2 (09:23→20:30)
[2022-04-10] MEDS: Aspirin 81 mg Enteric Coated Tablet PO SCH (09:23)
[2022-04-10] MEDS: traMADol HCl 50 MG TAB PO PRN (16:32)
[2022-04-10] MEDS: Atorvastatin Calcium 40 MG TAB PO SCH (20:30)
[2022-04-10] MEDS: Zolpidem Tartrate 5 MG TAB PO SCH (20:30)
[2022-04-10] MEDS: PARoxetine 20 MG TAB PO SCH (20:30)
[2022-04-11] MEDS: Ipratropium/Albuterol 3 ML NEB NEB SCH ×4 (00:55→18:50)
[2022-04-11 04:56] LABS: #Lymphocytes 0.4 thou/uL (1.20-3.40); #Monocytes 0.3 thou/uL (0.11-0.59); #Neutrophils 13.3 thou/uL (1.40-6.50); %Eosinophils 0.2 % (0.0-10.0); %Lymphocytes 3.1 % (21.0-51.0); %Monocytes 2.2 % (0.0-10.0); %Neutrophils 94.5 % (42.0-75.0); Hemoglobin 9.9 g/dL (12.0-16.0); Mean Corpuscular HGB CONC 31.6 g/dL (32.0-36.0); Mean Corpuscular Hemoglobin 31.3 pg (27.0-31.0); Mean Corpuscular Volume 98.9 fl (78.0-98.0); Mean Platelet Volume 7.4 fL (7.4-10.4); Platelet Count 243 10x3/uL (130-400); RBC Distribution Width 13.9 % (11.5-14.5); Red Blood Cell (RBC) Count 3.16 mill/uL (4.20-5.40); White Blood Cell (WBC) Count 14.1 10x3/uL (4.8-10.8)
[2022-04-11 05:26] LABS: Anion Gap 10 mmol/L (10-20); BUN (Urea Nitrogen) 19 mg/dL (9.8-20.1); Calc. Creatinine Clearance 86 mL/min (70-130); Calcium 8.4 mg/dL (7.8-10.44); Carbon Dioxide 33 mmol/L (23-31); Chloride 97 mmol/L (98-107); Estimated GFR 99; Glucose 183 mg/dL (80-115); Magnesium 1.9 mg/dL (1.6-2.6); Potassium 3.8 mmol/L (3.5-5.1); Sodium 136 mmol/L (136-145)
[2022-04-11] MEDS: methylPREDNISolone Sod Succ 40 MG VIAL IVP SCH (06:14)
[2022-04-11] MEDS: Mometasone/Formoterol 200/5 60 PUFF INH SCH ×2 (07:38→19:00)
[2022-04-11] MEDS ORDERED: Magnesium 2 GM/50 ML(in water) 2 GM in Premix Bag 1 BAG IVPB SCH (08:00)
[2022-04-11] MEDS ORDERED: FLU VACC QS2022-23(6MOS UP)/PF 60 MCG/0.5 ML SYRINGE IM ONE (09:00)
[2022-04-11] MEDS ORDERED: predniSONE 20 MG TAB PO SCH (09:45)
[2022-04-11] MEDS: Aripiprazole 10 MG TAB PO SCH (09:56)
[2022-04-11] MEDS: Amlodipine 10 MG TAB PO SCH (09:56)
[2022-04-11] MEDS: Aspirin 81 mg Enteric Coated Tablet PO SCH (09:57)
[2022-04-11] MEDS: clonazePAM 1 MG TAB PO SCH (09:57)
[2022-04-11] MEDS: Famotidine 20 MG TAB PO SCH ×2 (09:57→19:18)
[2022-04-11] MEDS: guaiFENesin ER 600 MG TAB PO SCH ×2 (09:58→19:18)
[2022-04-11] MEDS: Furosemide 20 MG TAB PO SCH (09:58)
[2022-04-11] MEDS: PARoxetine 20 MG TAB PO SCH (19:18)
[2022-04-11] MEDS: Zolpidem Tartrate 5 MG TAB PO SCH (19:18)
[2022-04-11] MEDS: Atorvastatin Calcium 40 MG TAB PO SCH (19:18)
[2022-04-11] MEDS: traMADol HCl 50 MG TAB PO PRN (19:19)
[2022-04-12] MEDS: Ipratropium/Albuterol 3 ML NEB NEB SCH ×2 (01:42→07:36)
[2022-04-12 05:26] LABS: #Lymphocytes 0.8 thou/uL (1.20-3.40); #Neutrophils 11.6 thou/uL (1.40-6.50); %Basophils 0.1 % (0.0-1.0); %Eosinophils 0.1 % (0.0-10.0); %Lymphocytes 5.7 % (21.0-51.0); %Monocytes 7.6 % (0.0-10.0); %Neutrophils 86.5 % (42.0-75.0); Hemoglobin 10.5 g/dL (12.0-16.0); Mean Corpuscular HGB CONC 31.4 g/dL (32.0-36.0); Mean Corpuscular Hemoglobin 31.3 pg (27.0-31.0); Mean Corpuscular Volume 99.4 fl (78.0-98.0); Mean Platelet Volume 7.5 fL (7.4-10.4); Platelet Count 244 10x3/uL (130-400); RBC Distribution Width 14.1 % (11.5-14.5); Red Blood Cell (RBC) Count 3.36 mill/uL (4.20-5.40); White Blood Cell (WBC) Count 13.4 10x3/uL (4.8-10.8)
[2022-04-12 05:48] LABS: Anion Gap 8 mmol/L (10-20); BUN (Urea Nitrogen) 17 mg/dL (9.8-20.1); Calc. Creatinine Clearance 89 mL/min (70-130); Calcium 8.6 mg/dL (7.8-10.44); Carbon Dioxide 37 mmol/L (23-31); Chloride 98 mmol/L (98-107); Estimated GFR 99; Glucose 147 mg/dL (80-115); Magnesium 2.1 mg/dL (1.6-2.6); Potassium 3.1 mmol/L (3.5-5.1); Sodium 140 mmol/L (136-145)
[2022-04-12] MEDS: Mometasone/Formoterol 200/5 60 PUFF INH SCH (07:32)
[2022-04-12] MEDS ORDERED: Potassium Chloride 20 MEQ TAB PO SCH (08:00)
[2022-04-12] MEDS ORDERED: predniSONE 20 MG TAB PO SCH (08:00)
[2022-04-12] MEDS ORDERED: predniSONE 5 MG TAB PO SCH (08:00)
[2022-04-12 08:08] VITALS: BP 139/76; TEMP 97.2
[2022-04-12] MEDS: Amlodipine 10 MG TAB PO SCH (09:32)
[2022-04-12] MEDS: Aspirin 81 mg Enteric Coated Tablet PO SCH (09:32)
[2022-04-12] MEDS: Aripiprazole 10 MG TAB PO SCH (09:32)
[2022-04-12] MEDS: guaiFENesin ER 600 MG TAB PO SCH (09:33)
[2022-04-12] MEDS: Famotidine 20 MG TAB PO SCH (09:33)
[2022-04-12] MEDS: clonazePAM 1 MG TAB PO SCH (09:33)
[2022-04-12] MEDS: Furosemide 20 MG TAB PO SCH (09:33)
== END 2022-04-12 12:04 | disposition home or self-care (01) | DRG 189 ==
LOC: ERS 09:56 → ERHOLD 12:25 → 2NO 20:50 → T4-A 20:56 → 2NO 21:03
PROVIDERS: ADMIT Family Medicine; ATTEND Internal Medicine
PROC: 5A09357 Assistance with Respiratory Ventilation, Less than 24 Consecutive Hours, Continuous Positive Airway Pressure (ICD-10-PCS; principal; 2022-04-08)
DX: J96.21 Acute and chronic respiratory failure with hypoxia (principal); J44.1 Chronic obstructive pulmonary disease with (acute) exacerbation; I50.32 Chronic diastolic (congestive) heart failure; J96.22 Acute and chronic respiratory failure with hypercapnia; Z66 Do not resuscitate; Z20.822 Contact with and (suspected) exposure to COVID-19; I11.0 Hypertensive heart disease with heart failure; F41.9 Anxiety disorder, unspecified; F32.A Depression, unspecified; E78.00 Pure hypercholesterolemia, unspecified; Z99.81 Dependence on supplemental oxygen; Z79.82 Long term (current) use of aspirin; Z79.51 Long term (current) use of inhaled steroids; Z88.0 Allergy status to penicillin; Z79.52 Long term (current) use of systemic steroids; Z79.899 Other long term (current) drug therapy; Z87.891 Personal history of nicotine dependence
CPT/HCPCS: 36415; 71045; 80048; 80053; 80076; 82805; 83605; 83690; 83735; 83880; 84484; 85025; 85610; 85730; 87040; 93005; 94640; 94644; 96365; 96374; 96375; J0696; J1100; J1650; J1956; J2920; J3475; J7512; J7611; J7620; U0002

== ENCOUNTER 2022-04-15 14:28 | Inpatient (IN) | payer MEDICARE ==
[2022-04-15 15:14] LABS: #Lymphocytes 0.4 thou/uL (1.20-3.40); #Monocytes 0.6 thou/uL (0.11-0.59); #Neutrophils 17.3 thou/uL (1.40-6.50); %Eosinophils 0.2 % (0.0-10.0); %Lymphocytes 2.4 % (21.0-51.0); %Monocytes 3.1 % (0.0-10.0); %Neutrophils 94.2 % (42.0-75.0); Mean Corpuscular HGB CONC 30.9 g/dL (32.0-36.0); Mean Corpuscular Hemoglobin 30.3 pg (27.0-31.0); Mean Corpuscular Volume 98.3 fl (78.0-98.0); Mean Platelet Volume 7.1 fL (7.4-10.4); Platelet Count 312 10x3/uL (130-400); RBC Distribution Width 13.9 % (11.5-14.5); Red Blood Cell (RBC) Count 3.96 mill/uL (4.20-5.40); White Blood Cell (WBC) Count 18.3 10x3/uL (4.8-10.8)
[2022-04-15] MEDS ORDERED: Magnesium 2 GM/50 ML BAG (IN WATER) ONE (15:22)
[2022-04-15] MEDS ORDERED: Ipratropium/Albuterol 3 ML NEB ONE (15:24)
[2022-04-15 15:31] LABS: ALT (SGPT) 20 U/L (8-55); AST (SGOT) 9 U/L (5-34); Alkaline Phosphatase 89 U/L (40-110); BUN (Urea Nitrogen) 19 mg/dL (9.8-20.1); Bilirubin, Total 0.3 mg/dL (0.2-1.2); Calc. Creatinine Clearance 0 mL/min (70-130); Estimated GFR 78; Glucose 210 mg/dL (80-115)
[2022-04-15] MEDS ORDERED: methylPREDNISolone Sod Succ 40 MG VIAL ONE (15:31)
[2022-04-15] MEDS ORDERED: Senokot S 8.6-50 MG TAB PO PRN (15:36)
[2022-04-15] MEDS ORDERED: Acetaminophen 325 MG TAB PO PRN (15:36)
[2022-04-15 15:37] LABS: Chloride 95 mmol/L (98-107); Potassium 4.2 mmol/L (3.5-5.1); Sodium 141 mmol/L (136-145)
[2022-04-15 15:40] LABS: Anion Gap 16 mmol/L (10-20); Carbon Dioxide 34 mmol/L (23-31)
[2022-04-15] MEDS ORDERED: Ondansetron PF 4 MG/2 ML Vial ONE (16:12)
[2022-04-15] MEDS ORDERED: Morphine 4 MG/ML VIAL ONE (16:12)
[2022-04-15] MEDS ORDERED: Electrolyte Replacement Protocol 1 EACH FS SCH (17:30)
[2022-04-15 17:35] VITALS: BMI 22.9
[2022-04-15] MEDS ORDERED: FLU VACC QS2022-23(6MOS UP)/PF 60 MCG/0.5 ML SYRINGE IM ONE (18:00)
[2022-04-15] MEDS: Ipratropium/Albuterol 3 ML NEB NEB SCH ×2 (19:35→23:02)
[2022-04-15] MEDS: Atorvastatin Calcium 40 MG TAB PO SCH (20:02)
[2022-04-15] MEDS: PARoxetine 20 MG TAB PO SCH (20:02)
[2022-04-15] MEDS ORDERED: Aripiprazole 10 MG TAB PO SCH (22:00)
[2022-04-16] MEDS: Ipratropium/Albuterol 3 ML NEB NEB SCH ×6 (03:01→22:02)
[2022-04-16] MEDS: methylPREDNISolone Sod Succ 40 MG VIAL IVP SCH ×2 (03:38→15:54)
[2022-04-16 04:55] LABS: #Lymphocytes 0.5 thou/uL (1.20-3.40); #Monocytes 0.5 thou/uL (0.11-0.59); #Neutrophils 11.8 thou/uL (1.40-6.50); %Eosinophils 0.2 % (0.0-10.0); %Lymphocytes 3.5 % (21.0-51.0); %Monocytes 4.2 % (0.0-10.0); %Neutrophils 92.1 % (42.0-75.0); Hemoglobin 10.5 g/dL (12.0-16.0); Mean Corpuscular HGB CONC 30.7 g/dL (32.0-36.0); Mean Corpuscular Hemoglobin 30.8 pg (27.0-31.0); Platelet Count 260 10x3/uL (130-400); RBC Distribution Width 13.6 % (11.5-14.5); Red Blood Cell (RBC) Count 3.41 mill/uL (4.20-5.40); White Blood Cell (WBC) Count 12.8 10x3/uL (4.8-10.8)
[2022-04-16 05:23] LABS: BUN (Urea Nitrogen) 23 mg/dL (9.8-20.1); Calc. Creatinine Clearance 91 mL/min (70-130); Calcium 8.5 mg/dL (7.8-10.44); Estimated GFR 99; Glucose 126 mg/dL (80-115); Magnesium 2.2 mg/dL (1.6-2.6)
[2022-04-16 05:32] LABS: Anion Gap 16 mmol/L (10-20); Carbon Dioxide 30 mmol/L (23-31); Chloride 96 mmol/L (98-107); Potassium 4.4 mmol/L (3.5-5.1); Sodium 138 mmol/L (136-145)
[2022-04-16] MEDS: Aspirin 81 mg Enteric Coated Tablet PO SCH (08:36)
[2022-04-16] MEDS: Amlodipine 10 MG TAB PO SCH (08:36)
[2022-04-16] MEDS ORDERED: Aripiprazole 10 MG TAB PO SCH (09:00)
[2022-04-16] MEDS: traMADol HCl 50 MG TAB PO PRN ×2 (12:39→18:24)
[2022-04-16] MEDS ORDERED: Arformoterol 15 MCG/2 ML NEB NEB SCH (19:00)
[2022-04-16] MEDS: PARoxetine 20 MG TAB PO SCH (20:20)
[2022-04-16] MEDS: Atorvastatin Calcium 40 MG TAB PO SCH (20:20)
[2022-04-16] MEDS: Zolpidem Tartrate 5 MG TAB PO SCH (20:20)
[2022-04-16] MEDS: Aripiprazole 10 MG TAB PO SCH (20:20)
[2022-04-17] MEDS: Ipratropium/Albuterol 3 ML NEB NEB SCH ×6 (02:53→21:16)
[2022-04-17] MEDS: methylPREDNISolone Sod Succ 40 MG VIAL IVP SCH ×2 (03:38→16:51)
[2022-04-17 05:21] LABS: #Lymphocytes 0.4 thou/uL (1.20-3.40); #Monocytes 0.7 thou/uL (0.11-0.59); #Neutrophils 10.9 thou/uL (1.40-6.50); %Eosinophils 0.2 % (0.0-10.0); %Lymphocytes 3.6 % (21.0-51.0); %Monocytes 5.4 % (0.0-10.0); %Neutrophils 90.8 % (42.0-75.0); Hemoglobin 10.9 g/dL (12.0-16.0); Mean Corpuscular Hemoglobin 30.6 pg (27.0-31.0); Mean Corpuscular Volume 98.5 fl (78.0-98.0); Mean Platelet Volume 6.9 fL (7.4-10.4); Platelet Count 286 10x3/uL (130-400); RBC Distribution Width 13.6 % (11.5-14.5); Red Blood Cell (RBC) Count 3.57 mill/uL (4.20-5.40)
[2022-04-17 05:46] LABS: Anion Gap 9 mmol/L (10-20); BUN (Urea Nitrogen) 18 mg/dL (9.8-20.1); Calc. Creatinine Clearance 99 mL/min (70-130); Carbon Dioxide 35 mmol/L (23-31); Chloride 97 mmol/L (98-107); Estimated GFR 101; Glucose 112 mg/dL (80-115); Sodium 137 mmol/L (136-145)
[2022-04-17] MEDS: traMADol HCl 50 MG TAB PO PRN ×2 (06:12→18:56)
[2022-04-17] MEDS: Arformoterol 15 MCG/2 ML NEB NEB SCH ×2 (07:30→18:40)
[2022-04-17] MEDS: Amlodipine 10 MG TAB PO SCH (08:54)
[2022-04-17] MEDS: Aspirin 81 mg Enteric Coated Tablet PO SCH (08:55)
[2022-04-17] MEDS: clonazePAM 1 MG TAB PO SCH (08:55)
[2022-04-17] MEDS: Zolpidem Tartrate 5 MG TAB PO SCH (21:08)
[2022-04-17] MEDS: PARoxetine 20 MG TAB PO SCH (21:09)
[2022-04-17] MEDS: Aripiprazole 10 MG TAB PO SCH (21:09)
[2022-04-17] MEDS: Atorvastatin Calcium 40 MG TAB PO SCH (21:09)
[2022-04-18] MEDS: Ipratropium/Albuterol 3 ML NEB NEB SCH ×6 (01:35→22:44)
[2022-04-18] MEDS: methylPREDNISolone Sod Succ 40 MG VIAL IVP SCH ×2 (04:59→16:39)
[2022-04-18] MEDS: Arformoterol 15 MCG/2 ML NEB NEB SCH ×2 (07:24→19:34)
[2022-04-18] MEDS: Aspirin 81 mg Enteric Coated Tablet PO SCH (10:14)
[2022-04-18] MEDS: Amlodipine 10 MG TAB PO SCH (10:14)
[2022-04-18] MEDS: clonazePAM 1 MG TAB PO SCH (10:14)
[2022-04-18] MEDS: traMADol HCl 50 MG TAB PO PRN (10:16)
[2022-04-18] MEDS: HYDROcodone/Acetaminophen 5/325 mg Tablet PO PRN ×2 (16:39→20:26)
[2022-04-18] MEDS: Zolpidem Tartrate 5 MG TAB PO SCH (20:26)
[2022-04-18] MEDS: Aripiprazole 10 MG TAB PO SCH (20:26)
[2022-04-18] MEDS: PARoxetine 20 MG TAB PO SCH (20:26)
[2022-04-18] MEDS: Atorvastatin Calcium 40 MG TAB PO SCH (20:26)
[2022-04-19] MEDS: Ipratropium/Albuterol 3 ML NEB NEB SCH ×6 (02:00→21:31)
[2022-04-19] MEDS: HYDROcodone/Acetaminophen 5/325 mg Tablet PO PRN ×4 (02:03→19:34)
[2022-04-19] MEDS: methylPREDNISolone Sod Succ 40 MG VIAL IVP SCH ×2 (03:51→18:04)
[2022-04-19] MEDS: Arformoterol 15 MCG/2 ML NEB NEB SCH ×2 (09:04→18:24)
[2022-04-19] MEDS: clonazePAM 1 MG TAB PO SCH (09:05)
[2022-04-19] MEDS: Amlodipine 10 MG TAB PO SCH (09:05)
[2022-04-19] MEDS: Aspirin 81 mg Enteric Coated Tablet PO SCH (09:05)
[2022-04-19] MEDS: Aripiprazole 10 MG TAB PO SCH (20:30)
[2022-04-19] MEDS: Atorvastatin Calcium 40 MG TAB PO SCH (20:30)
[2022-04-19] MEDS: Zolpidem Tartrate 5 MG TAB PO SCH (20:31)
[2022-04-19] MEDS: PARoxetine 20 MG TAB PO SCH (20:31)
[2022-04-20] MEDS: HYDROcodone/Acetaminophen 5/325 mg Tablet PO PRN ×4 (01:24→18:12)
[2022-04-20] MEDS: Ipratropium/Albuterol 3 ML NEB NEB SCH ×6 (01:30→21:35)
[2022-04-20] MEDS: methylPREDNISolone Sod Succ 40 MG VIAL IVP SCH (06:01)
[2022-04-20] MEDS: Arformoterol 15 MCG/2 ML NEB NEB SCH ×2 (06:01→18:22)
[2022-04-20] MEDS: Aspirin 81 mg Enteric Coated Tablet PO SCH (08:57)
[2022-04-20] MEDS: Amlodipine 10 MG TAB PO SCH (08:57)
[2022-04-20] MEDS: clonazePAM 1 MG TAB PO SCH (08:57)
[2022-04-20] MEDS: Aripiprazole 10 MG TAB PO SCH (20:59)
[2022-04-20] MEDS: Zolpidem Tartrate 5 MG TAB PO SCH (21:00)
[2022-04-20] MEDS: Atorvastatin Calcium 40 MG TAB PO SCH (21:00)
[2022-04-20] MEDS: PARoxetine 20 MG TAB PO SCH (21:00)
[2022-04-21] MEDS: HYDROcodone/Acetaminophen 5/325 mg Tablet PO PRN ×3 (00:16→09:15)
[2022-04-21] MEDS: Ipratropium/Albuterol 3 ML NEB NEB SCH ×4 (02:08→14:07)
[2022-04-21] MEDS: Arformoterol 15 MCG/2 ML NEB NEB SCH (06:21)
[2022-04-21] MEDS: Aspirin 81 mg Enteric Coated Tablet PO SCH (08:03)
[2022-04-21] MEDS: clonazePAM 1 MG TAB PO SCH (08:03)
[2022-04-21] MEDS: Amlodipine 10 MG TAB PO SCH (08:03)
[2022-04-21] MEDS ORDERED: predniSONE 20 MG TAB PO SCH (09:00)
[2022-04-21 12:41] VITALS: BP 116/67; TEMP 97.9
== END 2022-04-21 15:31 | disposition home or self-care (01) | DRG 189 ==
LOC: ERS 14:28 → 2SW 15:35 → OBSVTOIN 04-16 13:48
PROVIDERS: ADMIT Internal Medicine; ATTEND Internal Medicine
DX: J96.21 Acute and chronic respiratory failure with hypoxia (principal); J44.1 Chronic obstructive pulmonary disease with (acute) exacerbation; I50.32 Chronic diastolic (congestive) heart failure; Z66 Do not resuscitate; I11.0 Hypertensive heart disease with heart failure; Z20.822 Contact with and (suspected) exposure to COVID-19; J96.22 Acute and chronic respiratory failure with hypercapnia; E78.00 Pure hypercholesterolemia, unspecified; Z79.82 Long term (current) use of aspirin; Z79.51 Long term (current) use of inhaled steroids; Z79.52 Long term (current) use of systemic steroids; Z99.81 Dependence on supplemental oxygen; Z79.899 Other long term (current) drug therapy
CPT/HCPCS: 36415; 71045; 80048; 80053; 83735; 83880; 84484; 85025; 93005; 94640; 94760; 96365; 96372; 96375; 96376; G0378; J1650; J2270; J2405; J2920; J3475; J7512; J7611; J7620; U0003; U0005

== ENCOUNTER 2022-05-25 13:29 | Emergency (ER) | payer MEDICARE ==
[2022-05-25 15:07] LABS: #Lymphocytes 0.5 thou/uL (1.20-3.40); #Monocytes 0.2 thou/uL (0.11-0.59); #Neutrophils 7.9 thou/uL (1.40-6.50); %Eosinophils 0.5 % (0.0-10.0); %Lymphocytes 5.9 % (21.0-51.0); %Monocytes 2.6 % (0.0-10.0); %Neutrophils 91.1 % (42.0-75.0); Hemoglobin 11.7 g/dL (12.0-16.0); Mean Corpuscular HGB CONC 31.5 g/dL (32.0-36.0); Mean Corpuscular Hemoglobin 31.3 pg (27.0-31.0); Mean Corpuscular Volume 99.4 fl (78.0-98.0); Platelet Count 233 10x3/uL (130-400); RBC Distribution Width 13.7 % (11.5-14.5); Red Blood Cell (RBC) Count 3.73 mill/uL (4.20-5.40); White Blood Cell (WBC) Count 8.7 10x3/uL (4.8-10.8)
[2022-05-25 15:27] LABS: ALT (SGPT) 23 U/L (8-55); AST (SGOT) 14 U/L (5-34); Albumin 3.9 g/dL (3.4-4.8); Alkaline Phosphatase 99 U/L (40-110); BUN (Urea Nitrogen) 19 mg/dL (9.8-20.1); Bilirubin, Total 0.5 mg/dL (0.2-1.2); Calc. Creatinine Clearance 0 mL/min (70-130); Calcium 9.1 mg/dL (7.8-10.44); Estimated GFR 101; Globulin 2.3 g/dL (2.4-3.5); Glucose 146 mg/dL (80-115); Lipase 10 U/L (8-78); Protein, Total 6.2 g/dL (5.8-8.1)
[2022-05-25 15:36] LABS: Anion Gap 17 mmol/L (10-20); Carbon Dioxide 37 mmol/L (23-31); Chloride 89 mmol/L (98-107); Potassium 4.2 mmol/L (3.5-5.1); Sodium 139 mmol/L (136-145)
[2022-05-25 17:16] LABS: SARS-CoV-2 NAA Rapid Test Not Detected (NotDetected)
[2022-05-25] MEDS ORDERED: Ipratropium/Albuterol 3 ML NEB ONE ×2 (17:39→17:40)
== END 2022-05-25 18:21 | disposition home or self-care (01) ==
LOC: ERS 13:29
DX: J44.1 Chronic obstructive pulmonary disease with (acute) exacerbation (principal); I10 Essential (primary) hypertension; E78.00 Pure hypercholesterolemia, unspecified; J44.9 Chronic obstructive pulmonary disease, unspecified; Z79.82 Long term (current) use of aspirin; Z87.891 Personal history of nicotine dependence; Z20.822 Contact with and (suspected) exposure to COVID-19
CPT/HCPCS: 0240U; 71045; 80053; 83605; 83690; 83880; 84484; 85025; 93005; 94640; 94760; 36415; J7620